=== PATIENT | female | born 1940 | race Caucasian/White ===

== ENCOUNTER 2022-09-23 15:32 | Emergency (ER) | payer MEDICARE, SELFPAY ==
[2022-09-23 16:03] VITALS: BP 137/64; PULSE 70; RESP 18; TEMP 36.6; O2SAT 97; BMI 24.1
== END 2022-09-23 16:43 | disposition left against medical advice (07) ==
DX: Z53.21 Procedure and treatment not carried out due to patient leaving prior to being seen by health care provider (principal)
CPT/HCPCS: 99281

== ENCOUNTER 2022-12-19 08:08 | Emergency (ER) | payer MEDICARE, SELFPAY ==
[2022-12-19 08:22] VITALS: BP 140/60; PULSE 65; RESP 16; TEMP 36.4; O2SAT 97; BMI 23.9
[2022-12-19 08:45] VITALS: BP 140/80; RESP 16; TEMP 36.4; O2SAT 97
--- NOTE | 2022-12-19 08:49 | ED_ITS ---
HPI - General Adult General Time Seen by Provider: 08:49 Date Seen: 12/19/22 Chief complaint: Extremity Pain/Injury, Lower Stated complaint: Blood clot/left leg Time Seen by Provider: 12/19/22 08:32 Source: patient and RN notes reviewed Mode of arrival: ambulatory Limitations: no limitations History of Present Illness HPI narrative: Lavonne is an 82-year-old female coming in with concern of possible blood clot in her left lower leg. She awoke this morning due to pain in the lower medial distal calf. She wears compression stockings and thus has not noted any swe lling. She has had no fevers or chills, no shortness of breath, no chest pain. There has been no trauma. The pain in this leg awoke her this morning. She does not have a history of blood clots but when she called the clinic and talked to the triage nurse, they referred her here with a concern of a possible blood clot. 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 She did end up with a skin graft below the knee on the upper part of the leg. Her pain is medially and distally over the tibial area. No back pain, pain not coming down leg at all. Related Data Home Medications Medication Instructions Recorded Confirmed alendronate 70 mg tablet mg PO 09/23/22 10/02/22 amlodipine 5 mg tablet mg 09/23/22 10/02/22 beclomethasone dipropionate 80 inhalation 09/23/22 10/02/22 mcg/actuation HFA breath activated aerosol (Qvar RediHaler) lisinopril 20 tab 09/23/22 10/02/22 mg-hydrochlorothiazide 25 mg tablet sertraline 50 mg tablet mg 09/23/22 10/02/22 verapamil 180 mg tablet,extended mg PO 09/23/22 10/02/22 release sertraline 25 mg tablet mg 12/19/22 Allergies Allergy/AdvReac Type Severity Reaction Status Date / Time cephalexin Allergy Intermediate Rash Verified 10/02/22 14:37 piperacillin [From Zosyn] Allergy Intermediate Rash Verified 10/02/22 14:37 tazobactam [From Zosyn] Allergy Intermediate Rash Verified 10/02/22 14:37 Review of Systems Status of ROS: Reports: 10 or more systems reviewed and unremarkable except as noted in History and below [facility] Medical History (Updated 12/19/22 @ 10:55 by Emy Oneal MD) Herpes zoster Social History Smoking Status: Never smoker Non-prescribed substance use: denies use Exam Const: Vital Signs, click to edit/add: Vital Signs - 24 hr 12/19/22 08:22 12/19/22 08:45 Temperature 97.6 F 97.6 F Pulse Rate [Right Pulse Oximeter] 65 Respiratory Rate 16 16 Blood Pressure [Ri ght Upper Arm] 140/60 H 140/80 H Pulse Oximetry 97 97 Oxygen Delivery Me thod Room Air Room Air Documenting provider has reviewed patient's vital signs: yes Common normals: no apparent distress, average body habitus, oriented x3, no limitations, healthy appearing and alert General appearance: cooperative, comfortable, well kempt and well developed Other: Has a cane next to her bed which she presumably ambulates with. HENMT: Common normals: normocephalic, head/scalp atraumatic and hearing grossly normal bilaterally Head and scalp: normocephalic and atraumatic Eye: Common normals: PERRL, EOMs intact bilaterally, conjunctivae normal and no scleral icterus Conjunctiva: conjunctiva(e) normal Pupil: PERRL Neck & C-Spine: Common normals: full ROM, no lymphadenopathy, supple, no meningeal signs, no JVD and thyroid normal Thyroid: thyroid normal Resp: Common normals: normal respiratory effort, no retractions, no use of accessory muscles and clear to auscultation bilaterally Auscultation: clear to auscultation bilaterally Cardio: Common normals: no JVD, regular rate, regular rhythm, S1 normal heart sound, S2 normal heart sound, no gallops, no clicks, no murmurs, no rub and peripheral pulses 2+ throughout Rate: regular rate Rhythm: regular rhythm Heart sounds: S1 normal and S2 normal Peripheral pulses: pulses 2+ throughout GI: Common normals: Normal to inspection, nondistended, normoactive bowel sounds present, soft to palpation, non-tender, no hepatosplenomegaly and no masses Palpation: soft and no hepatosplenomegaly Extremity: Other: She has some chronic hemosiderin staining over this medial tibia area distally of the lower extremity. It is tender when I palpate over the distal tibia above the ankle area. There are no new skin changes such as erythema, no open wounds. She has no peripheral edema. Pulses are good, distal sensation is normal. There is no ankle swelling. Neuro: Common normals: oriented x3, moves all extremities, no focal motor deficits and no sensory deficits noted Sensorium/orientation: alert Meningeal signs: no meningeal signs Psych: Appearance: well kempt Course Course Hospital Course: We will have her on pulse oximetry to ensure no hypoxia, will obtain ultrasound to ensure no DVT, will be getting appropriate blood work. Given she has palpable pain over the tibia, will do plain x-rays of her left lower extremity. Infectious etiology, DVT are all possibilities. Certainly things that we may not be able to differentiate in the ED are such as even a stress fracture are all possible etiologies. We will attempt to rule out emergent potentially life- threatening issues but patient does understand if we find no etiology, may request that she follow up in a reasonable time frame for recheck via her clinic. Reevaluation(s) Reevaluation #1: Reviewed normal US, xray and labs. No evidence of infection or dvt at this time. Time: 10:50 Vital Signs Vital signs: Initial Vital Signs Temperature 97.6 F 12/19/22 08:22 Temperature Source Temporal Artery Scan 12/19/22 08:22 Pulse Rate 65 12/19/22 08:22 Respiratory Rate 16 12/19/22 08:22 Blood Pressure 140/60 H 12/19/22 08:22 Blood Pressure Mean 86 12/19/22 08:22 Blood Pressure Position Supine 12/19/22 08:22 Pulse Oximetry 97 12/19/22 08:22 Oxygen Delivery Method 12/19/22 08:22 Vital Signs Temperature 97.6 F 12/19/22 08:22 Pulse Rate 65 12/19/22 08:22 Respiratory Rate 16 12/19/22 08:22 Blood Pressure 140/60 H 12/19/22 08:22 Pulse Oximetry 97 12/19/22 08:22 Oxygen Delivery Method 12/19/22 08:22 Temperature 97.6 F 12/19/22 08:45 Pulse Rate 65 12/19/22 08:22 Respiratory Rate 16 12/19/22 08:45 Blood Pressure 140/80 H 12/19/22 08:45 Pulse Oximetry 97 12/19/22 08:45 Oxygen Delivery Method 12/19/22 08:45 Medical Decision Making Lab Data Lab results reviewed: Yes I reviewed the patient's lab results Labs: Lab Results 12/19/22 12/19/22 12/19/22 Range/Units 09:25 09:25 09:25 WBC 5.93 (4.50-11.00) K/uL RBC 4.34 (4.00-5.20) m/uL Hgb 12.9 (12.0-16.0) gm/dL Hct 38.7 (33.0-51.0) % MCV 89 (80-100) fL MCH 30 (26-34) pg MCHC 33 (32-36) gm/dL RDW Coeff of Rodo 12.6 (11.5-15.5) % Plt Count 197 (140-440) K/uL Neut % (Auto) 66.3 (42.0-72.0) % Lymph % (Auto) 20.4 (20-44) % Hamlin % (Auto) 9.6 (0.0-11.0) % Eos % (Auto) 3.4 (0.0-7.0) % Baso % (Auto) 0.3 (0.0-3.0) % Neut # (Auto) 3.93 (1.7-7.0) K/uL Lymph # (Auto) 1.21 (0.90-2.90) K/uL Hamlin # (Auto) 0.60 (0.00-0.90) K/UL Eos # (Auto) 0.20 (0.00-0.50) K/uL Baso # (Auto) 0.02 (0.00-0.30) K/uL Diff Slide Review Acceptable Review (Acceptable) ESR 2 (2-20) mm/hr D-Dimer Quant (PE/DVT) 0.47 (0.00-0.50) ug/ml Sodium (135-149) mmol/L Potassium (3.6-5.1) mmol/L Chloride (96-114) mmol/L Carbon Dioxide (20-32) mmol/L BUN (7-30) mg/dL Creatinine (0.5-1.5) mg/dL Estimated Creat Clear Estimated GFR ml/min Glucose (60-115) mg/dL Calcium (8.4-10.6) mg/dL C-Reactive Protein (0.5-1.0) mg/dL 12/19/22 Range/Units 09:25 WBC (4.50-11.00) K/uL RBC (4.00-5.20) m/uL Hgb (12.0-16.0) gm/dL Hct (33.0-51.0) % MCV (80-100) fL MCH (26-34) pg MCHC (32-36) gm/dL RDW Coeff of Rodo (11.5-15.5) % Plt Count (140-440) K/uL Neut % (Auto) (42.0-72.0) % Lymph % (Auto) (20-44) % Hamlin % (Auto) (0.0-11.0) % Eos % (Auto) (0.0-7.0) % Baso % (Auto) (0.0-3.0) % Neut # (Auto) (1.7-7.0) K/uL Lymph # (Auto) (0.90-2.90) K/uL Hamlin # (Auto) (0.00-0.90) K/UL Eos # (Auto) (0.00-0.50) K/uL Baso # (Auto) (0.00-0.30) K/uL Diff Slide Review (Acceptable) ESR (2-20) mm/hr D-Dimer Quant (PE/DVT) (0.00-0.50) ug/ml Sodium 137 (135-149) mmol/L Potassium 4.0 (3.6-5.1) mmol/L Chloride 105 (96-114) mmol/L Carbon Dioxide 29 (20-32) mmol/L BUN 28 (7-30) mg/dL Creatinine 0.7 (0.5-1.5) mg/dL Estimated Creat Clear 37.12 Estimated GFR 87 ml/min Glucose 99 (60-115) mg/dL Calcium 9.3 (8.4-10.6) mg/dL C-Reactive Protein < 0.5 L (0.5-1.0) mg/dL Imaging Data X-ray left tib fib: Attestation: I have reviewed the pertinent imaging results. My impression: I see no acute pathology around the distal tibia where she is complaining of pain. Radiologist's impression: Patient: LAVONNE WORTHINGTON Facility:?[facility] Patient ID:?[id number] Site Patient ID:?[id number]. Site :?[id number] Study:?XRay Extremity Left TIB/FIB 2V-12/19/2022 9:12:36 AM Ordering Physician:?UNKNOWN UNKNOWN Final Report: INDICATION: Distal tibial pain. No known injury. TECHNIQUE: Two views of the left tibia and fibula. COMPARISON: None. FINDINGS: Left knee arthroplasty with patellar resurfacing. Multiple surgical clips are projected anterior and lateral to the proximal fibula. No acute fracture or dislocation. Small plantar calcaneal spur. IMPRESSION: Postsurgical changes as described. The examination is otherwise negative. Dictated by Cade Ballard MD @ 12/19/2022 9:27:56 AM (Electronic Signature) Venous US: Attestation: I have reviewed the pertinent imaging results. Radiologist's impression: Patient: LAVONNE WORTHINGTON Facility:?[facility] Patient ID:?[id number] Site Patient ID:?[id number]. Site :?[id number] Study:?US Extremity Left DVT-12/19/2022 10:28:23 AM Ordering Physician:?UNKNOWN UNKNOWN Final Report: INDICATION: left calf pain/swelling TECHNIQUE: Ultrasound venous duplex left lower extremity. COMPARISON: None. FINDINGS: The left common femoral, superficial femoral, deep femoral, popliteal, posterior tibial, and greater saphenous veins are fully compressible normal waveforms. The contralateral right common femoral vein is also compressible with normal waveform. No masses evident. IMPRESSION: Normal ultrasound of the left lower extremity veins. Dictated by: Benja Dow MD @ 12/19/2022 10:43:26 (Electronic Signature) Critical Care Time Critical Care Time Critical Care Time: No Discharge Plan Discharge Clinical Impression: Acute pain of left lower extremity Condition: Stable Instructions: Leg Pain (ED) Additional Instructions: Take Tylenol per bottle directions as needed for pain. Need to schedule a follow-up in clinic within the next week for re-evaluation. Do recommend continuing wearing her compression stockings. Keep close eye on this leg, if you do start noticing redness, develops fever, need to be re-evaluated for possible development of infection. There is no evidence of infection or blood clot at this time. Activity Level: Activity as Tolerated Prescriptions: No Action alendronate 70 mg tablet PO Label Comments: Take 1 tablet (70 mg) by mouth every 7 days verapamil 180 mg tablet extended release PO Label Comments: TAKE TWO TABLETS BY MOUTH DAILY amlodipine 5 mg tablet Label Comments: TAKE ONE TABLET BY MOUTH DAILY lisinopril-hydrochlorothiazide 20-25 mg tablet Label Comments: TAKE ONE TABLET BY MOUTH DAILY sertraline 50 mg tablet Label Comments: TAKE 1 TABLET BY MOUTH DAILY. DUE FOR APPOINTMENT. Qvar RediHaler 80 mcg/actuation HFA aerosol breath activated INHALATION Label Comments: Inhale 1 puff into the lungs 2 times daily sertraline 25 mg tablet Label Comments: Take 1 tablet (25 mg) by mouth daily Follow Up/Referrals: Provider,Not a Local [Primary Care Provider] - Stand Alone Forms: [employer] Info Instructions
--- NOTE | 2022-12-19 08:54 | XR_ITS ---
Patient: MARK WORTHINGTON Facility:?[facility] Patient ID:?[id number] Site Patient ID:?[id number]. Site :?[id number] Study:?XRay-Extremity Left TIB/FIB 2V-12/19/2022 9:12:36 AM Ordering Physician:?UNKNOWN UNKNOWN Final Report: INDICATION: Distal tibial pain. No known injury. TECHNIQUE: Two views of the left tibia and fibula. COMPARISON: None. FINDINGS: Left knee arthroplasty with patellar resurfacing. Multiple surgical clips are projected anterior and lateral to the proximal fibula. No acute fracture or dislocation. Small plantar calcaneal spur. IMPRESSION: Postsurgical changes as described. The examination is otherwise negative. Dictated by Cade Ballard MD @ 12/19/2022 9:27:56 AM Signed by:?Cade Ballard MD @12/19/2022 9:27:56 AM (Electronic Signature)
--- NOTE | 2022-12-19 08:54 | US_ITS ---
Patient: MARK WORTHINGTON Facility:?[facility] Patient ID:?[id number] Site Patient ID:?[id number]. Site :?[id number] Study:?US-Extremity Left DVT-12/19/2022 10:28:23 AM Ordering Physician:?UNKNOWN UNKNOWN Final Report: INDICATION: left calf pain/swelling TECHNIQUE: Ultrasound venous duplex left lower extremity. COMPARISON: None. FINDINGS: The left common femoral, superficial femoral, deep femoral, popliteal, posterior tibial, and greater saphenous veins are fully compressible normal waveforms. The contralateral right common femoral vein is also compressible with normal waveform. No masses evident. IMPRESSION: Normal ultrasound of the left lower extremity veins. Dictated by: Benja Dow MD @ 12/19/2022 10:43:26 Signed by:Elizabeth Dow MD @12/19/2022 10:43:26 AM (Electronic Signature)
[2022-12-19 09:32] LABS: Basophils Absolute Auto 0.02 K/uL (0.00-0.30); Basophils Percent Auto 0.3 % (0.0-3.0); Eosinophils Percent Auto 3.4 % (0.0-7.0); Hematocrit 38.7 % (33.0-51.0); Hemoglobin* 12.9 gm/dL (12.0-16.0); Lymphocytes Absolute Auto 1.21 K/uL (0.90-2.90); Lymphocytes Percent Auto 20.4 % (20-44); Mean Corpuscular HGB Conc 33 gm/dL (32-36); Mean Corpuscular Hemoglobin 30 pg (26-34); Mean Corpuscular Volume 89 fL (80-100); Monocytes Percent Auto 9.6 % (0.0-11.0); Neutrophils Absolute Auto 3.93 K/uL (1.7-7.0); Neutrophils Percent Auto 66.3 % (42.0-72.0); RDW Coefficient of Variation % 12.6 % (11.5-15.5); Red Blood Count 4.34 m/uL (4.00-5.20); White Blood Count* 5.93 K/uL (4.50-11.00)
[2022-12-19 09:39] LABS: Slide Review Reflex Yes
[2022-12-19 09:44] LABS: Chloride* 105 mmol/L (96-114); Sodium* 137 mmol/L (135-149)
[2022-12-19 09:46] LABS: Creatinine* 0.7 mg/dL (0.5-1.5); Est. Creatinine Clearance* 37.12; Estimated Glomerular Filt Rate 87 ml/min
[2022-12-19 09:47] LABS: Blood Urea Nitrogen* 28 mg/dL (7-30); Carbon Dioxide* 29 mmol/L (20-32); Glucose* 99 mg/dL (60-115)
[2022-12-19 09:48] LABS: Calcium* 9.3 mg/dL (8.4-10.6)
[2022-12-19 09:49] LABS: Platelet Count* 197 K/uL (140-440)
[2022-12-19 09:50] LABS: C Reactive Protein* < 0.5 mg/dL (0.5-1.0); D Dimer Quantitative* 0.47 ug/ml (0.00-0.50); Slide Review Acceptable Review (Acceptable)
[2022-12-19 10:23] LABS: Erythrocyte SedimentationRate* 2 mm/hr (2-20)
== END 2022-12-19 11:03 | disposition home or self-care (01) ==
PROVIDERS: Emergency Provider Family Medicine
DX: M79.662 Pain in left lower leg (principal)
CPT/HCPCS: 36415; 73590; 80048; 85025; 85379; 85651; 86140; 93971; 94761; 99284

== ENCOUNTER 2024-03-17 15:35 | Outpatient (CLI) | payer MEDICARE, SELFPAY ==
--- OUTSIDE RECORDS SUMMARY | 2024-03-17 15:40 | XMS_ITS | Clinical Summary ---
Author Name Unknown Organization [place] Address [address] [facility] [address] Care Team Providers Care Tire And Lube Technician Name Role Phone Samantha Hodge MD Primary Care Provider [phone] Samantha Hodge MD Unavailable [phone] Allergies Active Allergy Reactions Criticality Noted Date Comments Cephalexin Hcl Rash Low 12/13/2012 No Clinical Screening - See Comments 09/10/1996 PN: LW CM1: CONTRAST- NKA Reaction : PN: LW Other1: -NKA Piperacillin Rash Low 03/30/2021 Piperacillin Sod-Tazobactam So Rash Low 10/15/2018 Tazobactam Rash Low 03/30/2021 Medications Medication Sig Dispensed Refills Start Date End Date Status Magnesium 500 MG CAPS Take 750 mg by mouth every morning Active order for DMEIndications:HX: breast cancer Equipment being ordered: 3 mastectomy bras, left mastectomy 3 Device 09/03/2019 Active order for DMEIndications:HX: breast cancer Equipment being ordered: left breast prosthesis 1 Device 09/03/2019 Active vitamin B-12 (CYANOCOBALAMIN) 500 MCG tablet Take 500 mcg by mouth daily Active pyridOXINE (VITAMIN B6) 100 MG TABS Take 100 mg by mouth daily Active Ascorbic Acid (VITAMIN C) 500 MG CAPS Take 1,000 mg by mouth daily Active Cholecalciferol (VITAMIN D3) 50 MCG (1999 UT) TABS Take 2,000 Units by mouth daily Active BETA CAROTENE PO Take 7,500 Units by mouth daily Active vitamin E 400 units TABS Take 400 Units by mouth daily Active Lysine 1000 MG TABS Take by mouth daily Active Lutein 20 MG CAPS Take 20 mg by mouth daily Active Potassium Gluconate 595 (99 K) MG TABS Take 1 tablet by mouth daily Active Selenium 200 MCG TABS tablet Take 200 mcg by mouth daily Active zinc gluconate 50 MG tablet Take 50 mg by mouth daily Active calcium carbonate (OS-DIANA) 1500 (600 Ca) MG tablet Take 600 mg by mouth daily Active albuterol (PROAIR HFA/PROVENTIL HFA/VENTOLIN HFA) 108 (90 Base) MCG/ACT inhaler Inhale 2 puffs into the lungs every 4 hours as needed for shortness of breath or wheezing Active fish oil-omega-3 fatty acids 1000 MG capsule Take 1 g by mouth daily Active glucosamine sulfate 1000 MG CAPS Take 1,000 mg by mouth daily Active beclomethasone HFA (QVAR REDIHALER) 80 MCG/ACT inhalerIndications: Mild intermittent asthma without complication Inhale 1 puff into the lungs 2 times daily 10.6 g 3 01/16/2022 Active alendronate (FOSAMAX) 70 MG tabletIndications:A ge-related osteoporosis without current pathological fracture Take 1 tablet (70 mg) by mouth every 7 days 13 tablet 3 05/03/2022 Active amLODIPine (NORVASC) 5 MG tabletIndications:E ssential hypertension Take 1 tablet by mouth daily 90 tablet 3 07/10/2022 Active verapamil ER (CALAN-SR) 180 MG CR tabletIndications:E ssential hypertension TAKE TWO TABLETS BY MOUTH DAILY 180 tablet 1 07/24/2022 Active Additional Information Patient taking differently: 360 mg Oral DAILY, Reported on 03/07/2023 sertraline (ZOLOFT) 50 MG tabletIndications:M oderate episode of recurrent major depressive disorder (H) TAKE 1 TABLET BY MOUTH DAILY. DUE FOR APPOINTMENT. 90 tablet 11/23/2022 Active Additional Information Patient taking differently: 75 mg Oral DAILY, Reported on 03/07/2023 lisinopril-hydrochl orothiazide (ZESTORETIC) 20-25 MG tabletIndications:E ssential hypertension TAKE ONE TABLET BY MOUTH DAILY 90 tablet 12/06/2022 Active Additional Information Patient taking differently: 1 tablet Oral DAILY, Reported on 03/07/2023 ibuprofen (ADVIL/MOTRIN) 600 MG tablet Take 1 tablet (600 mg) by mouth every 6 hours as needed for pain 30 tablet 03/09/2023 Active oxyCODONE (ROXICODONE) 5 MG tablet Take 1 tablet (5 mg) by mouth every 4 hours as needed for moderate pain 20 tablet 03/09/2023 Active senna-docusate (SENOKOT-S/PERICOLA CE) 8.6-50 MG tablet Take 1 tablet by mouth 2 times daily 30 tablet 03/09/2023 Active Active Problems Problem Noted Date Diagnosed Date S/P gynecological surgery, follow-up exam 2022 Recurrent major depressive d isorder, in full remission (H24) 10/25/2022 Moderate episode of recurrent major depressive d isorder 01/16/2022 Acute kidney injury (H24) 04/04/2021 Elevated procalcitonin 04/04/2021 Fever 04/04/2021 Fracture of right hip 04/04/2021 Hyponatremia 04/04/2021 Lesion of soft tissue of lower leg and ankle 08/2021 Open wound of lower limb, right, initial encount er 02/26/2020 S/P flap graft 09/05/2018 Status post total knee replacement 08/30/2018 Open knee wound, left, initial encounter 018 Osteoporosis without current pathological fracture, unspecified osteoporosis type 01/17/2018 HX: breast cancer 12/13/2015 CARDIOVASCULAR SCREENING; LDL GOAL LESS THAN 130 10/02/2013 Health Correction 07/10/2013 Overview: Candy Sams RN-BSN, [facility] [phone]. FPA / FMG [facility] Line Service Person Asthma, mild intermittent 03/07/2013 Arthritis of hip 12/23/2012 Essential hypertension 05/02/2003 Overview: Hypertension Hypoxia 05/02/2003 Overview: Asthma NOS Resolved Problems Problem Noted Date Diagnosed Date Resolved Date Ulcer of lower limb, left, w ith unspecified severity 12/14/2016 12/27/2017 Generalized anxiety disorder 04/03/2014 10/24/2018 Overview: Diagnosis updated by automated process. Provider to review and confirm. HTN (hypertension) 12/30/2012 6 Physical deconditioning 12/30/201209/26 Anemia due to blood loss, acute 12/30/2012 03/07/2013 Encounters Date Type Department Care Team Description 02/08/2024 9:56 AM CDT - 02/08/2024 11:59 PM CDT Hospital Encounter [facility] [address] [facility], [address] [place] [address] Cassandra Hernandez MD Visit for screening mammogram Discharge Disposition: Home or Self Care 02/08/2024 Travel 01/18/2024 Telephone [facility] [address] [place] [id number] Samantha Hodge MD test (Cologuard FIT test) from Last 3 Months Immunizations Name Administration Dates Next Due COVID-19 MONOVALENT 12+ (Pfizer) 01/15/2021,11/28 Influenza (H1N1) 12/14/2009 Influenza (High Dose) 3 veronica nt vaccine 09/03/2019,10/04/2018,09/11/2017,09/26,09/08/2015,09/11/2014 Influenza (IIV3) PF 09/11/2014,09/01/2013,2011 Influenza Vaccine 65+ (Fluzone HD) 08/17/2021, Influenza Vaccine >6 months,quad, PF 08/18/2020, 12/14/2009 Pneumo Conj 13-V (2010&after) 04/30/2018 Pneumococcal 23 valent 09/05/2012 TDAP (Adacel,Boostrix) 08/07/2011 Td (Adult), Adsorbed 01/16/2003,07/26/1998 Tdap (Adult) Unspecified Formulation 01/16/2003 Zoster recombinant adjuvante d (SHINGRIX) 10/22/2018,06/04/2018 08/05/2018 Zoster vaccine, live 10/22/2018,06/04/2018,08/07 Family History Medical History Relation Comments No Known Problems Daughter C.A.D. Father Cancer Mother Endometrial CA Breast Cancer No family hx of Ovarian Cancer No family hx of Relation Status Comments Brother Daughter Alive Father Mother Sister Son Social History Tobacco Use Types Packs/Day Years Used Date Smoking Tobacco: Never Smokeless Tobacco: Never Tobacco Cessation:Counseling Given: No Alcohol Use Standard Drinks/Week Comments Yes 0 (1 standard drink = 0.6 oz pur e alcohol) 3 drinks weekly PHQ-2 Answer Date Recorded PHQ-2 Score 0 10/25/2022 Adolescent Education Answer Date Record ed Getting School Help Needed Not on file 09/09 Sex and Gender Information Value Date Recorded Sex Assigned at Not on file Gender Identity Not on file Sexual Orientation Not on file Last Filed Vital Signs Vital Sign Reading Time Taken Comments Blood Pressure 131/62 03/09/2023 7:25 AM CDT Pulse 67 03/09/2023 7:25 AM CDT Temperature 36.7 ??C (98.1 ??F) 03/09/2023 7:25 AM CD T Respiratory Rate 18 03/09/2023 7:25 AM CDT Oxygen Saturation 95% 03/09/2023 7:25 AM CDT Inhaled Oxygen Concentration - - Weight 62.7 kg (138 lb 3.2 oz) 03/08/2023 10:36 AM CDT Height 158.8 cm (5' 2.5) 02/26/2023 9:45 AM CDT Body Mass Index 24.87 02/26/2023 9:45 AM CDT Plan of Treatment Health Maintenance Due Date Last Done Comments DEPRESSION ACTION PLAN 1940 URINE DRUG SCREEN 1940 RSV VACCINE ( & 60+) (1 - 1-dose 60+ series) 2002 ASTHMA ACTION PLAN 03/07/2014 03/07/2013 ASTHMA CONTROL TEST 04/24/2023 10/25/2022, 01/16/2022, 04/20/2021, Additional history exists PHQ-9 04/24/2023 10/25/2022, 07/28, 01/16/2022, Additional history exists ANNUAL REVIEW OF HM ORDERS 10/25/2023 10/25/2022 FALL RISK ASSESSMENT 02/27/2024 02/26/2023, 01/16/2022, 10/25/2021, Additional history exists MEDICARE ANNUAL WELLNESS VISIT 01/30/2025 01/31/2024, 01/26/2023, 01/26/2023, Additional history exists MAMMO SCREENING 02/07/2025 02/08/2024, 01/24, 01/23/2022, Additional history exists ADVANCE CARE PLANNING 03/08/2028 03/08/2023 , 01/16/2022, 04/04/2021, Additional history exists DEXA 01/03/2033 01/03/2018, 06/2018, 11/29/2015, Additional history exists DTAP/TDAP/TD IMMUNIZATION (4 - Td or Tdap) 01/26/2033 01/26/2023, 08/07/2011, 01/16/2003, Additional history exists Pneumococcal Vaccine: 65+ Years Completed 04/30/2018, 09/05/2012 ZOSTER IMMUNIZATION Completed 10/22/2018, 10/22/2018, 06/04/2018, Additional history exists COVID-19 Vaccine Completed 09/04/2023, , 04/25/2022, Additional history exists INFLUENZA VACCINE Completed 09/04/2023, , 09/07/2022, Additional history exists HPV IMMUNIZATION Aged Out No longer e ligible based on patient's age to complete this topic IPV IMMUNIZATION Aged Out No longer e ligible based on patient's age to complete this topic MENINGITIS IMMUNIZATION Aged Out No l onger eligible based on patient's age to complete this topic RSV MONOCLONAL ANTIBODY Aged Out No l onger eligible based on patient's age to complete this topic Medical Devices Implanted Type Area Sanitarian Device Identifier Shelf Expiration Date Model / Serial / Lot Mesh Sling Single Incision Altis [id number] - [id number] Implanted:Qty: 1 on 03/08/2023 by Guille Modi MD at [facility] Mesh N/A: Vagina COLOPLAST 09/22/2025 [id number] / / [id number] Darling Nabsb Saffron Fx Strl Lf Reuse - [id number] Implanted:Qty: 1 on 03/08/2023 by Guille Modi MD at [facility] Metallic Hardware/An chor N/A: Vagina COLOPLAST [id number] 2025 [id number] / / [id number] Darling Dimpleb Brady Strl Lf Disp - [id number] Implanted:Qty: 6 on 03/08/2023 by Guille Modi MD at [facility] Metallic Hardware/An chor N/A: Vagina COLOPLAST 07/05/2025 [id number] / / [id number] Imp Device Anastomotic 2.0mm Order Manager Green [id number] Implanted:Qty: 1 on 09/05/2018 by Ian Irwin MD at [facility] Other Left: Knee [employer] 06/19/2023 [id number] / / [id number] Description:Implanted at [facility] e Flap Site Imp Device Anastomotic 3.0mm Order Manager Gold [id number] Implanted:Qty: 1 on 09/05/2018 by Ian Irwin MD at [facility] Other Left: Knee [employer] 04/11/2023 [id number] / / [id number] Description:Implanted at [facility] e Flap Site 56mm E Cluster Hole Shell Implanted:Qty: 1 on 12/23/2012 by Valdo Ramos MD at [facility] Left: Hip 11/19/2017 [id number] 6E / / [id number] Imp Scr Osteonics 6.5x30mm Acetabular Implanted:Qty: 1 on 12/23/2012 by Valdo Ramos MD at [facility] Left: Hip 09/19/20173 0-1 / / [id number] Imp Scr Osteonics 6.5x25mm Acetabular Implanted:Qty: 1 on 12/23/2012 by Valdo Ramos MD at [facility] Left: Hip 09/19/2017652 5-1 / / [id number] Imp Plug Hip Secur-Fit Apical Implanted:Qty: 1 on 12/23/2012 by Valdo Ramos MD at [facility] Left: Hip 11/19/2017 0-1 / / [id number] Imp Liner Strk Trident X3 Poly 36mm 0deg Sz E [id number] Implanted:Qty: 1 on 12/23/2012 by Valdo Ramos MD at [facility] Left: Hip 10/20/2017 623-00-3 6E / / [id number] Imp Stem Femoral Hip Strk Accolade Tmzf Sz #4.5 Implanted:Qty: 1 on 12/23/2012 by Valdo Ramos MD at [facility] Left: Hip 03/20/2017 6020-453 5 / / [id number] Imp Head Femoral Strk Biolox Delta Ceramic 36mm -5mm Implanted:Qty: 1 on 12/23/2012 by Valdo Ramos MD at [facility] Left: Hip 09/19/2017 6570-0-0 36 / / [id number] Procedures Procedure Name Priority Date/Time Associated Diagnosis Comments MA SCREENING RIGHT W/ AGUILAR Routine 02/08/2024 10:19 AM CDT Visit for screening mammogram DX PERIPHERAL WRIST Routine 01/03/2018 1 0:43 AM SLIVER CUTTER Routine general medical examination at a [facility] facility ASTHMA ACTION PLAN Routine 03/07/2013 1: 47 PM CDT Asthma, mild intermittent from Last 3 Months or Most Recently Relevant to Health Maintenance Results * MA Screen Right w/Aguilar (02/08/2024 10:19 AM CDT) Anatomical Region Laterality Modality Breast Bilateral Mammography Impressions 02/08/2024 1:26 PM CDT IMPRESSION: ACR BI-RADS Category 1: Negative BREAST CANCER SCREENING RECOMMENDATION: Routine yearly mammography beginning at age 40 or as discussed with your provider. The results and recommendations of this examination will be communicated to the patient. Estephania Funk MD Narrative 02/08/2024 1:26 PM CDT RIGHT FULL FIELD DIGITAL SCREENING MAMMOGRAM WITH TOMOSYNTHESIS Performed on: 02/08/24 Compared to: 02/06/2023, 01/23/2022, and 12/01/2019 Technique: ??This study was evaluated with the assistance of Computer-Aided Detection. ??Breast Tomosynthesis was used in interpretation. Findings: The patient is status post left mastectomy. The breast has scattered areas of fibroglandular density. ??There is no radiographic evidence of malignancy. Cassandra Hernandez MD IMG MAMMOGRAPHY KATELYN GARCIA * DX Wrist Heel Radius (01/03/2018 10:43 AM SLIVER CUTTER) Anatomical Region Laterality Modality Dexa Bone Mineral Den sity Narrative 01/04/2018 8:56 AM SLIVER CUTTER BONE DENSITOMETRY [address] [address] 01/03/2018 ?? PATIENT: Lavonne Thapa CHART: [id number] : ??1940 AGE: ??77 year old SEX: ??female REFERRING PROVIDER: Samantha Hodge MD ?? PROCEDURE: ??Bone density scanning was performed using DXA technology of the lumbar spine and hip. ??Scanning was performed on a [employer] scanner. ??Reporting is completed in the form of a T-score. ??The T-score represents the standard deviation from peak bone mass based on a young healthy adult. ?? REFERENCE T-SCORES: ?Normal ?-1.0 and greater ?Osteopenia ? Between -1.0 and -2.5 ?Osteoporosis ? -2.5 and less ? RISK FACTORS: ??Post-menopausal, Height loss of 2.5 inches, follow up severe osteoporosis, multiple vertebral fractures CURRENT TREATMENT: ??Calcium with Vitamin D ?? FINDINGS: ? Lumbar Spine (L1-L3) T-score: 0.7, marked degenerative changes present, most marked at L4, so only L1-3 are evaluated. ? Right Femoral Neck T-score: ??-3.1 ? Forearm (radius 33%) T-score: ??-1.2 The left femur is not acceptable for evaluation due to previous arthroplasty. ?? Lumbar (L1-L3) BMD: 1.270 ?Previous: 1.294 ? Right Total Hip BMD: 0.659 ? Previous: 0.687 ?? Forearm (radius 33%) BMD: 0.617 ?Previous: 0.639 Comparison is made to another DXA performed on the same [employer] ?? machine on 11/29/2015. ?? LATERAL VERTEBRAL ASSESSMENT Procedure: ??Vertebral fracture assessment was performed in the lateral decubitus position using a [employer] ??densitometer. Indications for VFA: T-score of -1.0 or worse, age (female>69), height loss > 1.5 and history of vertebral fracture Confounding factors for VFA: None. ??The LVA scan is interpretable from T6 to L4. VFA Findings: Using the semi-quantitative analysis of [place] there was evidence of spinal deformity as follows: ??moderate (grade 2) crush fracture of T10, and moderate (grade 2) crush fracture of T11 VFA Impression: Lavonne Thapa has 2 vertebral fractures identified on the LVA. ??If alternative etiologies for the presence of vertebral fractures are excluded, the diagnosis is consistent with severe osteoporosis. ??These are unchanged from 2016 IMPRESSION Severe osteoporosis on the basis of multiple vertebral fractures. There has been no significant change in bone density of the lumbar spine. There has been a trend toward significant decrease in bone density of the hip. There has been no significant change in bone density of the forearm. Recommendations include ensuring adequate Calcium and Vitamin D. The current NOF Guidelines recommend treatment for patients with prior hip or vertebral fracture, T-score -2.5 or below, or 10 year risk of any major osteoporotic fracture >20% or 10 year risk of hip fracture >3%, as calculated using the FRAX calculator (www.shef.ac.uk/FRAX or you can google FRAX). ?? Based on these guidelines, treatment (in addition to calcium and vitamin D) is recommended for this patient, after ruling out other causes of osteoporosis. This is meant as an aid to clinical decision making; one must still use clinical judgement. Follow up can be considered in 2 years. Patricia Orellana M.D. Electronically signed ?? Samantha Hodge MD IMG DEXA ORDERABLES from Last 3 Months or Most Recently Relevant to Health Maintenance Advance Directives For more information, please contact: [phone] Documents on File Type Date Recorded Patient Family Service Caseworker Expl anation Advance Directives and Living Will 03/08/2023 Health Care Directiv e 01/06/2020 Advance Directives and Living Will 04/04/2021 POL 09-12-18 * Full Code (Latest Code Status on File) Date Activated Date Inactivated Comments 03/08/2023 5:07 PM 03/09/2023 2:36 PM All basic an d advanced life-sustaining interventions are performed as appropriate Question Answer Comments Code status determined by: Discussion with kimberly khanna/ legal decision maker * Full Code Date Activated Date Inactivated Comments 08/30/2018 6:04 PM 09/06/2018 1:24 AM Question Answer Comments Code status determined by: Discussion with patie nt/legal decision maker * Full Code Date Activated Date Inactivated Comments 08/29/2018 9:00 PM 08/30/2018 6:04 PM Question Answer Comments Code status determined by: Unable to dis cuss and no AD/POLST on file; continue PREVIOUSLY ORDERED code status * Full Code Date Activated Date Inactivated Comments 12/23/2012 6:12 PM 12/26/2012 4:40 PM Healthcare Agents on File Name Relationship Healthcare Agent Relationshi p Communication Courtney Nicholsonwillam Daughter Health Care Agent Annette Nugent Daughter First Alternate Health Care Agent Care Teams Tire And Lube Technician Relationship Specialty Start Date End Date Samantha Hodge MD [address] [address] PCP - General Internal Medicine 02/08/24 Samantha Hodge MD [address] [place] [address] Assigned PCP 02/16/24
--- OUTSIDE RECORDS SUMMARY | 2024-03-17 15:41 | XMS_ITS | Encounter Summary ---
Author Name Unknown Organization [place] Address [address] [place] [address] Care Team Providers Care Locomotive Crane Operator Helper Name Role Phone Whitehead, Annette Damico APRN JITTERBUG OPERATOR Unavailable [phone] Samantha Hodge MD Primary Care Provider [phone] Reason for Visit * Diagnostic Imaging Mammo (Routine) - Pending Review Specialty Diagnoses / Procedures Referred By Brenda solis Referred To Contact Radiology. Diagnoses Visit for screening mammogram Procedures MA Screen Right w/Jose A MA Screen Bilateral w/Jose A Cassandra Hernandez MD [address] [place] [address] Referral ID Status Reason Start Date Expiration Date V isits Requested Visits Authorized [id number] Pending Review 01/18/2024 01/17/2025 1 1 Encounter Details Date Type Department Care Team (Late st Contact Info) Description 02/08/2024 9:56 AM CDT - 02/08/2024 11:59 PM CDT Hospital Encounter [facility] [address] [place] [id number] Cassandra Hernandez MD [address] [place] [address] Visit for screening mammogram Discharge Disposition: Home or Self Care Social History Tobacco Use Types Packs/Day Years Used Date Smoking Tobacco: Never Smokeless Tobacco: Never Alcohol Use Standard Drinks/Week Comments Yes 0 [...] on file Sexual Orientation Not on file documented as of this encounter Medications at Time of Discharge Medication Sig Dispensed Refills Start Date End Date albuterol (PROAIR HFA/PROVENTIL HFA/VENTOLIN HFA) 108 (90 Base) MCG/ACT inhaler Inhale 2 puffs into the lungs every 4 hours as needed for shortness of breath or wheezing alendronate (FOSAMAX) 70 MG tabletIndications:Age-r elated osteoporosis without current pathological fracture Take 1 tablet (70 mg) by mouth every 7 days 13 tablet 3 05/03/2022 amLODIPine (NORVASC) 5 MG tabletIndications:Essen tial hypertension Take 1 tablet by mouth daily 90 tablet 3 07/10/2022 Ascorbic Acid (VITAMIN C) 500 MG CAPS Take 1,000 mg by mouth daily beclomethasone HFA (QVAR REDIHALER) 80 MCG/ACT inhalerIndications:Mild intermittent asthma without complication Inhale 1 puff into the lungs 2 times daily 10.6 g 3 01/16/2022 BETA CAROTENE PO Take 7,500 Units by mouth daily calcium carbonate (OS-DIANA) 1500 (600 Ca) MG tablet Take 600 mg by mouth daily Cholecalciferol (VITAMIN D3) 50 MCG (2000 UT) TABS Take 2,000 Units by mouth daily fish oil-omega-3 fatty acids 1000 MG capsule Take 1 g by mouth daily glucosamine sulfate 1000 MG CAPS Take 1,000 mg by mouth daily ibuprofen (ADVIL/MOTRIN) 600 MG tablet Take 1 tablet (600 mg) by mouth every 6 hours as needed for pain 30 tablet 03/09/2023 lisinopril-hydrochlorot hiazide (ZESTORETIC) 20-25 MG tabletIndications:Essen tial hypertension TAKE ONE TABLET BY MOUTH DAILY 90 tablet 12/06/2022 Lutein 20 MG CAPS Take 20 mg by mouth daily Lysine 1000 MG TABS Take by mouth daily Magnesium 500 MG CAPS Take 750 mg by mouth every morning order for DMEIndications:HX: breast cancer Equipment being ordered: 3 mastectomy bras, left mastectomy 3 Device 09/03/2019 order for DMEIndications:HX: breast cancer Equipment being ordered: left breast prosthesis 1 Device 09/03/2019 oxyCODONE (ROXICODONE) 5 MG tablet Take 1 tablet (5 mg) by mouth every 4 hours as needed for moderate pain 20 tablet 03/09/2023 Potassium Gluconate 595 (99 K) MG TABS Take 1 tablet by mouth daily pyridOXINE (VITAMIN B6) 100 MG TABS Take 100 mg by mouth daily Selenium 200 MCG TABS tablet Take 200 mcg by mouth daily senna-docusate (SENOKOT-S/PERICOLACE) 8.6-50 MG tablet Take 1 tablet by mouth 2 times daily 30 tablet 03/09/2023 sertraline (ZOLOFT) 50 MG tabletIndications:Moder ate episode of recurrent major depressive disorder (H) TAKE 1 TABLET BY MOUTH DAILY. DUE FOR APPOINTMENT. 90 tablet 11/23/2022 verapamil ER (CALAN-SR) 180 MG CR tabletIndications:Essen tial hypertension TAKE TWO TABLETS BY MOUTH DAILY 180 tablet 1 07/24/2022 vitamin B-12 (CYANOCOBALAMIN) 500 MCG tablet Take 500 mcg by mouth daily vitamin E 400 units TABS Take 400 Units by mouth daily zinc gluconate 50 MG tablet Take 50 mg by mouth daily documented as of this encounter Plan of Treatment Not on file documented as of this encounter Procedures Procedure Name Priority Date/Time Associated Diagnosis Comments MA SCREENING RIGHT W/ JOSE A Routine 02/08/2024 10:19 AM CDT Visit for screening mammogram documented in this encounter Results * MA Screen Right w/Jose A (02/08/2024 10:19 AM CDT) Anatomical Region Laterality [...] Cassandra Hernandez MD IMG MAMMOGRAPHY KATELYN GARCIA documented in this encounter Visit Diagnoses Diagnosis Visit for screening mammogram Other screening mammogram documented in this encounter Additional Health Concerns Assessment Noted Time PHQ-9 Depression Total Score: 0 10/25/20 22 11:31 AM DOOR ASSEMBLER documented as of this encounter Care Teams Locomotive Crane Operator Helper Relationship Specialty Start Date End Date Samantha Hodge MD [address] [place], [place] [address] PCP - General Internal Medicine 02/08/24 Annette Whitehead, TINT LAYER JITTERBUG OPERATOR [address] [place], [place] [id number] Assigned PCP 01/18/24 02/15/24 documented as of this encounter
--- OUTSIDE RECORDS SUMMARY | 2024-03-17 15:41 | XMS_ITS | Encounter Summary ---
Author Name Unknown Organization [place] Address [address] [facility] [place] [address] Care Team Providers Care Set Illustrator Name Role Phone Samantha Hodge MD Primary Care Provider [phone] Samantha Hodge MD Unavailable [phone] Jaun Calabrese MD Unavailable [phone] Annette Whitehead APRN MANAGEMENT TRAINEE MARKETING Unavailable [phone] Samantha Hodge MD Primary Care Provider [phone] Samantha Hodge MD Unavailable [phone] Reason for Visit * Reason Comments Medication Refill Encounter Details Date Type Department Care Team (Late st Contact Info) Description 03/25/2022 Refill [facility] [address] [place] [address] Samantha Hodge MD [address] [place] [address] Medication Refill Social History Tobacco Use Types Packs/Day Years Used Date Smoking Tobacco: Never Smokeless Tobacco: Never Alcohol Use Standard Drinks/Week Comments Yes 0 (1 standard drink = 0.6 oz pur e alcohol) 3 drinks weekly PHQ-2 Answer Date Recorded PHQ-2 Score 2 01/16/2022 Sex and Gender Information Value Date Recorded Sex Assigned at Not on file Gender Identity Not on file Sexual Orientation Not on file documented as of this encounter Miscellaneous Notes * Telephone Encounter - Talita Zamorano RN - 03/28/2022 12:47 PM CDT Routing refill request to provider for review/approval because: Drug not active on patient's medication list Prescription approved per [facility] Refill Protocol. amlodipine Due for appointment with Naveen around 07/16/22 Routed to covering provider for review. documented in this encounter Plan of Treatment Not on file documented as of this encounter Visit Diagnoses Diagnosis Essential hypertension Unspecified essential hypertension documented in this encounter Additional Health Concerns Assessment Noted Time PHQ-9 Depression Total Score: 3 01/16/20 22 9:19 AM REPRESENTATIVE PERSONAL SERVICE documented as of this encounter Care Teams Set Illustrator Relationship Specialty Start Date End Date Samantha Hodge MD [address] [place] [address] PCP - General Internal Medicine 08/31/16 01/09/24 Samantha Hodge MD [address] [employer] [facility] [address] [place] [address] PCP - General Internal Medicine 02/08/24 Samantha Hodge MD [address] [facility] [address] [place] [address] Assigned PCP 09/07/19 01/17/24 Jaun Calabrese MD [address] [place] [address] Assigned OBGYN Provider 04/09/2210/05 Annette Whitehead, WOOL CLEANER MANAGEMENT TRAINEE MARKETING [address] [place] [address] Assigned PCP 01/18/24 02/15/24 Samantha Hodge MD [address] [facility] [address] [place] [address] Assigned PCP 02/16/24 documented as of this encounter
--- OUTSIDE RECORDS SUMMARY | 2024-03-17 15:41 | XMS_ITS | Encounter Summary ---
Author Name Unknown Organization [place] Address [address] [place] [address] Care Team Providers Care Psychiatric Lpn Name Role Phone Annette Whitehead Margaux MURO WELFARE INTERVIEWER Unavailable Samantha Hodge MD Primary Care Provider [phone] Samantha Hodge MD Unavailable [phone] Reason for Visit * Reason Onset Date Comments test 01/18/[address] Encounter Details Date Type Department Care Team (Late st Contact Info) Description 01/18/[address] [place] [address] Samantha Hodge MD [address] [facility] [address] [place] [address] test (Cologuard FIT test) Social History Tobacco Use Types Packs/Day Years [...] encounter Miscellaneous Notes * Telephone Encounter - Sohail Flores MD - 02/05/2024 3:59 PM CDT Placed order for FIT test. Should this be mailed to her? * Telephone Encounter - Talita Zamorano RN - 01/21/2024 11:50 AM CST Please see message below. Test pended Routed to covering provider-Sandra RANS SERVICE REPRESENTATIVE * Telephone Encounter - Talita Jeffries - 01/18/2024 4:03 PM CST Patient calls asking for the at home Cologuard FIT test kit. Patient call back number [phone] RANS SERVICE REPRESENTATIVE documented in this encounter Plan of Treatment Scheduled Orders Name Type Priority Associated Diagnoses Orde r Schedule Fecal colorectal cancer screen (FIT) Lab Routine Screen for colon cancer Expected: 02/06/2024 (Approximate), Expires: 01/21/2025 documented as of this encounter Visit Diagnoses Diagnosis Screen for colon cancer- Primary Special screening for malignant neoplasms, colon documented in this encounter Additional Health Concerns Assessment Noted Time PHQ-9 Depression Total Score: 0 10/25/20 22 11:31 AM VETERANS SERVICE REPRESENTATIVE documented as of this encounter Care Teams Psychiatric Lpn Relationship Specialty Start Date End Date Samantha Hodge MD [address] [facility] [address] [place] [address] PCP - General Internal Medicine 02/08/24 Annette Whitehead APRN CNP [address] [place] [address] Assigned PCP 01/18/24 02/15/24 Samantha Hodge MD [address] [facility] [address] [place] [address] Assigned PCP 02/16/24 documented as of this encounter
--- OUTSIDE RECORDS SUMMARY | 2024-03-17 15:41 | XMS_ITS | Encounter Summary ---
Author Name Unknown Organization [place] Address [address] [facility] [place] [address] Care Team Providers Care Snow Technician Name Role Phone Samantha Hodge MD Primary Care Provider [phone] Samantha Hodge MD Unavailable [phone] Jaun Calabrese MD Unavailable [phone] Annette Whitehead APRN CASH CROP FARMER Unavailable [phone] Samantha Hodge MD Primary Care Provider [phone] Samantha Hodge MD Unavailable [phone] Reason for Visit * Reason Comments Medication Refill Encounter Details Date Type Department Care Team (Late st Contact Info) Description 12/04/[address] [facility] [address] [place] [address] Samantha Hodge MD [address] [place] [address] Medication Refill Social History Tobacco Use Types Packs/Day Years Used Date Smoking Tobacco: Never Smokeless Tobacco: Never Alcohol Use Standard Drinks/Week Comments Yes 0 (1 standard drink = 0.6 oz pur e alcohol) 3 drinks weekly PHQ-2 Answer Date Recorded PHQ-2 Score 0 10/25/2022 Sex and Gender Information Value Date Recorded Sex Assigned at Not on file Gender Identity Not on file Sexual Orientation Not on file COVID-19 Exposure Response Date Recorded In the last 10 days, have yo u been in contact with someone who was confirmed or suspected to have Coronavirus/COVID-19? No / Unsure 11/16/2022 8:53 AM HIDE DROPPER documented as of this encounter Miscellaneous Notes * Telephone Encounter - Talita Zamorano, RN - 12/06/2022 1:03 PM CST Medication is being filled for 1 time refill only due to: has upcoming appt Next 5 appointments (look out 90 days) Jan 17, 2023 8:00 AM (Arrive by 7:40 AM) Annual Wellness Visit with Samantha Hodge MD [facility] ([facility] ) [address] [facility] [address] DROPPER documented in this encounter Plan of Treatment Not on file documented as of this encounter Visit Diagnoses Diagnosis Essential hypertension Unspecified essential hypertension documented in this encounter Additional Health Concerns Assessment Noted Time PHQ-9 Depression Total Score: 0 10/25/20 22 11:31 AM HIDE DROPPER documented as of this encounter Care Teams Snow Technician Relationship Specialty Start Date End Date Samantha Hodge MD [address] [facility] [address] [place] [address] PCP - General Internal Medicine 08/31/16 01/09/24 Samantha Hodge MD [address] [facility] [address] [place] [address] PCP - General Internal Medicine 02/08/24 Samantha Hodge MD [address] [place] [address] Assigned PCP 09/07/19 01/17/24 Jaun Calabrese MD [address] [facility] [address] [place] [address] Assigned OBGYN Provider 04/09/2210/05 Annette Whitehead APRN [facility] [address] [place] [address] Assigned PCP 01/18/24 02/15/24 Samantha Hodge MD [address] [facility] [address] [place] [address] Assigned PCP 02/16/24 documented as of this encounter
--- OUTSIDE RECORDS SUMMARY | 2024-03-17 15:41 | XMS_ITS | Encounter Summary ---
Author Name Unknown Organization [place] Address [address] [facility] [place] [address] Care Team Providers Care Cashier Manager Name Role Phone Samantha Hodge MD Primary Care Provider [phone] Samantha Hodge MD Unavailable [phone] Migue Becerra MD Unavailable + [phone] Jaun Calabrese MD Unavailable [phone] Annette Whitehead APRN ARTIFICIAL FLOWER MAKER Unavailable [phone] Samantha Hodge MD Primary Care Provider [phone] Samantha Hodge MD Unavailable [phone] Reason for Visit * Reason Comments Medication Refill Encounter Details Date Type Department Care Team (Late st Contact Info) Description 08/15/2021 Refill [facility] [address] [place] [address] Samantha Hodge MD [address] [facility] [address] [place] [address] Medication Refill Social History Tobacco Use Types Packs/Day Years Used Date Smoking Tobacco: Never Smokeless Tobacco: Never Alcohol Use Standard Drinks/Week Comments Yes 0 (1 standard drink = 0.6 oz pur e alcohol) 3 drinks weekly PHQ-2 Answer Date Recorded PHQ-2 Total Score (Adult) - Positive if 3 or more points; Administer PHQ-9 if positive 0 02/23/2021 Sex and Gender Information Value Date Recorded Sex Assigned at Not on file Gender Identity Not on file Sexual Orientation Not on file documented as of this encounter Miscellaneous Notes * Telephone Encounter - Arnaldo Lemos RN - 08/16/2021 2:43 PM CDT Prescription approved per [facility] Refill Protocol. documented in this encounter Plan of Treatment Not on file documented as of this encounter Visit Diagnoses Diagnosis Moderate episode of recurrent major depressive disorder (H) documented in this encounter Additional Health Concerns Assessment Noted Time PHQ-9 Depression Total Score: 0 02/25/20 7:04 AM CDT documented as of this encounter Care Teams Cashier Manager Relationship Specialty Start Date End Date Samantha Hodge MD [address] [employer] [address] [place] [address] PCP - General Internal Medicine 08/31/16 01/09/24 Samantha Hodge MD [address] [place] [address] PCP - General Internal Medicine 02/08/24 Samantha Hodge MD [address] [place] [address] Assigned PCP 09/07/19 01/17/24 Migue Becerra MD [address] [place] [address] Assigned Heart and Vascular Provider 07/17/21 10/29/21 Jaun Calabrese MD [address] [facility] [address] [place] [address] Assigned OBGYN Provider 04/09/2210/05 Annette Whitehead APRN ARTIFICIAL FLOWER MAKER [address] [place] [address] Assigned PCP 01/18/24 02/15/24 Samantha Hodge MD [address] [place] [address] Assigned PCP 02/16/24 documented as of this encounter
--- OUTSIDE RECORDS SUMMARY | 2024-03-17 15:41 | XMS_ITS | Encounter Summary ---
Author Name Unknown Organization [place] Address [address] [facility] [place] [address] Care Team Providers Care Oil Distributor Tender Name Role Phone Samantha Hodge MD Primary Care Provider [phone] Samantha Hodge MD Unavailable [phone] Donita Smith MD Unavailable [phone] Ian Irwin MD Unavailable [phone] Edward Manzano MD Unavailable [phone] Nancy Castro RN Unavailable Unavailable Migue Becerra MD Unavailable +- [phone] Jaun Calabrese MD Unavailable [phone] Annette Whitehead APRN SURGICAL TECHNICIAN Unavailable [phone] Samantha Hodge MD Primary Care Provider [phone] Samantha Hodge MD Unavailable [phone] Reason for Visit * Reason Comments Medication Refill amLODIPine (NORVASC) Encounter Details Date Type Department Care Team (Late st Contact Info) Description 03/06/2020 Refill [facility] [address] [place] [address] Samantha Hodge MD [address] [place] [address] Medication Refill (amLODIPine (NORVASC)) Social History Tobacco Use Types Packs/Day Years Used Date Smoking Tobacco: Never Smokeless Tobacco: Never Alcohol Use Standard Drinks/Week Comments Yes 0 (1 standard drink = 0.6 oz pur e alcohol) 3 drinks weekly PHQ-2 Answer Date Recorded PHQ-2 Score 0 12/04/2018 Sex and Gender Information Value Date Recorded Sex Assigned at Not on file Gender Identity Not on file Sexual Orientation Not on file COVID-19 Exposure Response Date Recorded In the last month, have you been in contact with someone who was confirmed or suspected to have Coronavirus / COVID-19? No / Unsure 03/05/2020 7:38 AM CDT documented as of this encounter Miscellaneous Notes * Telephone Encounter - Ana Perdue RN - 03/09/2020 9:16 AM CDT Requested Prescriptions Pending Prescriptions Disp Refills ??? amLODIPine (NORVASC) 5 MG tablet [Pharmacy Med Name: amLODIPine Besylate Oral Tablet 5 MG] 90 tablet 0 Sig: TAKE ONE TABLET BY MOUTH DAILY Calcium Channel Blockers Protocol Failed - 03/08/2020 10:03 AM Failed - Blood pressure under 140/90 in past 12 months BP Readings from Last 3 Encounters: 02/26/20 (!) 164/71 01/21/20 136/72 01/19/20 138/62 Passed - Recent (12 mo) or future (30 days) visit within the authorizing provider's specialty Patient has had an office visit with the authorizing provider or a provider within the authorizing providers department within the previous 12 mos or has a future within next 30 days. See Patient Info tab in inbasket, or Choose Columns in Meds & Orders section of the refill encounter. Passed - Medication is active on med list Passed - Patient is age 18 or older Passed - No active on record Passed - Normal serum creatinine on file in past 12 months Recent Labs Lab Test 09/03/19 1011 12/23/14 0909 CR 0.71 < > -- CREAT -- -- 0.8 < > = values in this interval not displayed. Ok to refill medication if creatinine is low Passed - No positive test in past 12 months Routing refill request to provider for review/approval because: Vitals out of range: Blood pressure * Telephone Encounter - Beverley Adams - 03/08/2020 10:02 AM CDT Requested Prescriptions Pending Prescriptions Disp Refills ??? amLODIPine (NORVASC) 5 MG tablet [Pharmacy Med Name: amLODIPine Besylate Oral Tablet 5 MG] 90 tablet 0 Sig: TAKE ONE TABLET BY MOUTH DAILY Last Written Prescription Date: 12/17/2019 Last Fill Quantity: 90, # refills: 0 Last office visit: 01/19/2020 with prescribing provider: Future Office Visit: Next 5 appointments (look out 90 days) Mar 24, 2020 9:15 AM CDT Return Visit with Noam Elizabeth MD [facility] [place] ([facility]) [address] [facility] [address] [facility] [address] Calcium Channel Blockers Protocol Failed - 03/06/2020 12:44 PM Failed - Blood pressure under 140/90 in past 12 months BP Readings from Last 3 Encounters: 02/26/20 (!) 164/71 01/21/20 136/72 01/19/20 138/62 Passed - Recent (12 mo) or future (30 days) visit within the authorizing provider's specialty Patient has had an office visit with the authorizing provider or a provider within the authorizing providers department within the previous 12 mos or has a future within next 30 days. See Patient Info tab in inbasket, or Choose Columns in Meds & Orders section of the refill encounter. Passed - Medication is active on med list Passed - Patient is age 18 or older Passed - No active on record Passed - Normal serum creatinine on file in past 12 months Recent Labs Lab Test 09/03/19 1011 12/23/14 0909 CR 0.71 < > -- CREAT -- -- 0.8 < > = values in this interval not displayed. Ok to refill medication if creatinine is low Passed - No positive test in past 12 months documented in this encounter Plan of Treatment Not on file documented as of this encounter Visit Diagnoses Diagnosis Essential hypertension Unspecified essential hypertension documented in this encounter Additional Health Concerns Infection Onset Date Last Indicated Resolved Time Rule Out COVID-19 04/05/2021 04/05/2021 04/06/2021 5:26 PM CDT Rule Out COVID-19 04/11/2021 04/11/2021 04/12/2021 5:04 PM CDT documented as of this encounter Care Teams Oil Distributor Tender Relationship Specialty Start Date End Date Samantha Hodge MD [address] [facility] [address] [place] [address] PCP - General Internal Medicine 08/31/16 01/09/24 Samantha Hodge MD [address] [facility] [address] [place] [address] PCP - General Internal Medicine 02/08/24 Samantha Hodge MD [address] [facility] [address] [place] [address] Assigned PCP 09/07/19 01/17/24 Donita Smith MD [address] [place] [id number] Assigned Infectious Disease Provider 09/17/20 10/16/20 Ian Irwin MD [address] [id number] Assigned Surgical Provider 09/17/20 10/09/20 Edward Manzano MD [address] [facility] [address] [place] [address] Assigned Heart and Vascular Provider 09/17/20 07/16/21 Castro, Nancy R, RN [facility] 04/13/2103/27 Migue Becerra MD [address] [facility] [address] [place] [address] Assigned Heart and Vascular Provider 07/17/21 10/29/21 Jaun Calabrese MD [address] [facility] [address] [place], [place] [id number] Assigned OBGYN Provider 04/09/2210/05 Annette Whitehead, DRAFTER GEOLOGICAL [facility] [address] [place], [place] [address] Assigned PCP 01/18/24 02/15/24 Samantha Hodge MD [address] [facility] [address] [place], [place] [address] Assigned PCP 02/16/24 documented as of this encounter
--- OUTSIDE RECORDS SUMMARY | 2024-03-17 15:41 | XMS_ITS | Referral Summary ---
Author Name Unknown Organization [place] Address [address] [place] [address] Care Team Providers Care Shell Mold Bonding Machine Operator Name Role Phone Samantha Hodge MD Primary Care Provider Samantha Hodge MD Unavailable [phone] Encounters Date Type Department Care Team Description 02/08/2024 Travel 02/08/2024 9:56 AM CDT - 02/08/2024 11:59 PM CDT Hospital Encounter [facility] [place] [address], [address] [place] [address] Cassandra Hernandez MD Visit for screening mammogram Discharge Disposition: Home or Self Care 01/18/2024 Telephone [facility] [address] [place] [address] Samantha Hodge MD test (Cologuard FIT test) from Last 3 Months Allergies Active Allergy Reactions Criticality Noted Date [...] daily Active Cholecalciferol (VITAMIN D3) 50 MCG (2000 UT) [...] LDL GOAL LESS THAN 130 10/02/2013 Health Alf 07/10/2013 Overview: Candy Sams RN-BSN, [facility] [phone]. FPA / [facility]G [facility] Jewelry Facer Asthma, mild intermittent 03/07/2013 Arthritis of hip [...] due to blood loss, acute 12/30/2012 03/07/2013 Immunizations Name Administration Dates Next Due COVID-19 [...] (SHINGRIX) 10/22/2018,06/04/2018 08/05/2018 Zoster vaccine, live 10/22/2018,06/04/2018,08/07 Social History Tobacco Use Types Packs/Day Years [...] 02/26/2023 9:45 AM CDT Plan of Treatment Not on file Medical Devices Implanted Type Area Computerized Mill Recorder Device Identifier Shelf Expiration Date Model / Serial / Lot Mesh Sling Single Incision Altis [id number] - [id number] Implanted:Qty: 1 on 03/08/2023 by Guille Modi MD at [facility] Mesh N/A: Vagina COLOPLAST 09/22/2025 [id number] / / [id number] [place] Nabsb Saffron Fx Strl Lf Reuse - [id number] Implanted:Qty: 1 on 03/08/2023 by Guille Modi MD at [facility] Metallic Hardware/An chor N/A: Vagina COLOPLAST [id number] 2025 [id number] / / [id number] [place] Nabsb Saffron Strl Lf Disp - [id number] Implanted:Qty: 6 on 03/08/2023 by Guille Modi MD at [facility] Metallic Hardware/An chor N/A: Vagina COLOPLAST 07/05/2025 [id number] / / [id number] Imp Device Anastomotic 2.0mm Research Associate Green [id number] Implanted:Qty: 1 on 09/05/2018 by Ian Irwin MD at [facility] Other Left: Knee [employer] 06/19/2023 [id number] / / [id number] Description:Implanted at [facility] e Flap Site Imp Device Anastomotic 3.0mm Research Associate Gold [id number] Implanted:Qty: 1 on 09/05/2018 by Ian Irwin MD at [facility] Other Left: Knee [employer] 04/11/2023 [id number] / / [id number]- [id number] Description:Implanted at [facility] e Flap Site 56mm E Cluster Hole Shell Implanted:Qty: 1 on 12/23/2012 by Valdo Ramos MD at [facility] Left: Hip 11/19/2017 [id number] 6E / / [id number] Imp Scr Osteonics 6.5x30mm Acetabular [id number] Implanted:Qty: 1 on 12/23/2012 by Valdo Ramos MD at [facility] Left: Hip 09/19/20172029-653 0-1 / / [id number] Imp Scr Osteonics 6.5x25mm Acetabular [id number] Implanted:Qty: 1 on 12/23/2012 by Valdo Ramos MD at [facility] Left: Hip 09/19/20172029-652 5-1 / / [id number] Imp Plug Hip Secur-Fit Apical Implanted:Qty: 1 on 12/23/2012 by Valdo Ramos MD at [facility] Left: Hip 11/19/2017 0-1 / / [id number] Imp Liner Strk Trident X3 Poly 36mm 0deg Sz E [id number] Implanted:Qty: 1 on 12/23/2012 by Valdo Ramos MD at [facility] Left: Hip 10/20/2017 623-00-3 6E / / [id number] Imp Stem Femoral Hip Strk Accolade Tmzf Sz #4.5 Implanted:Qty: 1 on 12/23/2012 by Valdo Ramos MD at [facility] Left: Hip 03/20/2017 [id number] 5 / / [id number] Imp Head Femoral Strk Biolox Delta Ceramic 36mm -5mm Implanted:Qty: 1 on 12/23/2012 by Valdo Ramos MD at [facility] Left: Hip 09/19/2017 6570-0-0 36 / / [id number] Procedures Procedure Name Priority Date/Time Associated Diagnosis Comments MA SCREENING RIGHT W/ AGUILAR Routine 02/08/2024 10:19 AM CDT Visit for screening mammogram DX PERIPHERAL WRIST Routine 01/03/2018 1 0:43 AM WEBSPHERE ARCHITECT Routine general medical examination at a health care facility ASTHMA ACTION PLAN Routine 03/07/2013 [...] of malignancy. Cassandra Hernandez MD IMG MAMMOGRAPHY ORDE RABLES * DX Wrist Heel Radius (01/03/2018 10:43 AM WEBSPHERE ARCHITECT) Anatomical Region Laterality Modality Dexa Bone Mineral Den sity Narrative 01/04/2018 8:56 AM WEBSPHERE ARCHITECT BONE DENSITOMETRY [address] [address] 01/03/2018 ?? PATIENT: Lavonne Thapa CHART: [id number] : ??1940 AGE: ??77 year old SEX: ??female REFERRING PROVIDER: Samantha Hodge MD ?? PROCEDURE: ??Bone density scanning was performed using DXA technology of the lumbar spine and hip. ??Scanning was performed on a [employer] scanner. ??Reporting is completed in the form [...] to another DXA performed on the same [employer] ?? machine on 11/29/2015. ?? LATERAL VERTEBRAL ASSESSMENT Procedure: ??Vertebral fracture assessment was performed in the lateral decubitus position using a [employer] ??densitometer. Indications for VFA: T-score of -1.0 or worse, age (female>69), height loss > 1.5 and history of vertebral fracture Confounding factors for VFA: None. ??The LVA scan is interpretable from T6 to L4. VFA Findings: Using the semi-quantitative analysis of Genant there was evidence of spinal deformity as [...] Advance Directives For more information, please contact: [phone] Documents on File Type Date Recorded Patient Cyber Security Manager Expl anation Advance Directives and Living Will 03/08/2023 Health Care Directiv e 01/06/2020 Advance Directives and Living Will 04/04/2021 POLST 09-12-18 * Full Code (Latest Code Status on File) Date Activated Date Inactivated Comments 03/08/2023 5:07 PM 03/09/2023 2:36 PM All basic an d advanced life-sustaining interventions are performed as appropriate Question Answer Comments Code status determined by: Discussion with patie nt/ legal decision maker * Full Code Date [...] Relationship Healthcare Agent Relationshi p Communication Courtney Thapa Daughter Health Care Agent Annette Nugent Daughter First Alternate Health Care Agent Care Teams Shell Mold Bonding Machine Operator Relationship Specialty Start Date End Date Samantha Hodge MD [address] [address] PCP - General Internal Medicine 02/08/24 Samantha Hodge MD [address] [address] Assigned PCP 02/16/24
--- OUTSIDE RECORDS SUMMARY | 2024-03-17 15:41 | XMS_ITS | Encounter Summary ---
Author Name Unknown Organization [facility] Address [address] [place] [address] Care Team Providers Care Computer Hardware Technician Name Role Phone Samantha Hodge MD Primary Care Provider [phone] Encounter Details Date Type Department Care Team (Late st Contact Info) Description 01/01/2012 Orders Only [facility] [address] [place] [address] Talita Acuna Social History Tobacco Use Types Packs/Day Years Used Date Smoking Tobacco: Never Assessed Sex and Gender Information Value Date Recorded Sex Assigned at Not on file Gender Identity Not on file Sexual Orientation Not on file documented as of this encounter Plan of Treatment Not on file documented as of this encounter Visit Diagnoses Not on filedocumented in this encounter Care Teams Computer Hardware Technician Relationship Specialty Start Date End Date Samantha Hodge MD [address] [facility] [address] [place] [address] PCP - General Internal Medicine 07/06/17 documented as of this encounter
--- OUTSIDE RECORDS SUMMARY | 2024-03-17 15:41 | XMS_ITS | Clinical Summary ---
Author Name Unknown Organization [facility] Address [place], [place] [address] Care Team Providers Care Headend Technician Name Role Phone Cassandra Hernandez MD Primary Care Provider Allergies Active Allergy Reactions Criticality Noted Date Comments Cephalexin Rash High 12/13/2012 Piperacillin Rash Low 03/30/2021 Piperacillin-Tazobactam Rash Low 10/15/2018 Tazobactam Rash Low 03/30/2021 Unlisted Allergen (Include Detail In Comments) *Unknown 09/10/1996 PN: LW Other1: -NKA Medications Medication Sig Dispensed Refills Start Date End Date Status ascorbic acid, vitamin C, 500 mg cap Take 1,000 mg by mouth. Active Flowflex COVID-19 Ag Home Test kit Administer test 06/30/2022 Active cyanocobalamin (VITAMIN B12) 500 mcg tablet Take 500 mcg by mouth. Active Docosahexanoic Acid-Eicosapent 120-180 mg cap Take 1 g by mouth. Active glucosamine sulfate 1,000 mg cap Take 1,000 mg by mouth. Active lutein 20 mg capsule Take by mouth. Active Lysine 1,000 mg tablet Take by mouth. Active Magnesium Oxide 500 mg cap Take 750 mg by mouth. Active Potassium Gluconate 2.5 mEq tab Take by mouth. Active pyridoxine, vitamin B6, (VITAMIN B6) 100 mg tablet Take 100 mg by mouth. Active vitamin E acid succinate (vitamin E succinate) 268 mg (400 unit) tab Take 400 units by mouth. Active zinc gluconate 50 mg tablet Take 50 mg by mouth. Active albuterol HFA (PRO-AIR; VENTOLIN; PROVENTIL) 90 mcg/actuation inhalerIndications:M oderate persistent asthma, unspecified whether complicated Inhale 2 Puffs by mouth every 4 hours if needed for Shortness Of Breath or Wheezing. 1 Each 5 01/31/2024 Active alendronate (FOSAMAX) 70 mg tabletIndications:Os teoporosis, unspecified osteoporosis type, unspecified pathological fracture presence Take 1 Tablet (70 mg) by mouth once a week in the morning. 12 Tablet 3 01/31/2024 Active amLODIPine (NORVASC) 5 mg tabletIndications:Es sential hypertension Take 1 Tablet (5 mg) by mouth once daily. 90 Tablet 3 01/31/2024 Active beclomethasone dipropionate (QVAR REDIHALER) 80 mcg/actuation HFAb HFA inhalerIndications:M oderate persistent asthma, unspecified whether complicated Inhale 1 Puff by mouth two times daily. 3 Each 3 01/31/2024 Active lisinopril-hydrochlo rothiazide, 20-25 mg, (PRINZIDE, ZESTORETIC) 20-25 mg per tabletIndications:Es sential hypertension Take 1 Tablet by mouth once daily. 90 Tablet 3 01/31/2024 Active sertraline (ZOLOFT) 25 mg tabletIndications:An xiety Take 1 Tablet (25 mg) by mouth once daily. 90 Tablet 3 01/31/2024 Active sertraline (ZOLOFT) 50 mg tabletIndications:An xiety Take 1 Tablet (50 mg) by mouth every morning. Take with 25 mg for total daily dose of 75 mg/day 90 Tablet 3 01/31/2024 Active verapamil SR (CALAN SR) 180 mg Sustained-Release tabletIndications:Es sential hypertension Take 2 Tablets (360 mg) by mouth once daily with a meal. 180 Tablet 3 01/31/2024 Active Active Problems Problem Noted Date Diagnosed Date Rectocele 01/26/2023 Anxiety 01/26/2023 Overview: On zoloft, well controlled Status post total knee replacement 08/30/2018 Osteoporosis without current pathological fractu re 01/17/2018 Asthma, mild intermittent 03/07/2013 Essential hypertension 05/02/2003 Overview: Hypertension Hypertension Resolved Problems Problem Noted Date Diagnosed Date Resolved Date Recurrent major depressive d isorder, in full remission 01/31/2024 02/01/2024 Moderate episode of recurren t major depressive disorder 01/31/2024 02/01/2024 Midline cystocele 01/26/2023 10/29/2023 Vaginal vault prolapse 01/26/202310/29 Fracture of right hip 04/04/20212022 Encounters Date Type Department Care Team Description 02/08/2024 Orders Only [facility] Scanner 1 scan: (1-Ord) [facility], SCREEN RT W/JOSE A, 02/08/2024 02/01/2024 Telephone [facility] [address] [place] [address] Cassandra Hernandez MD Questions (/) 01/31/2024 9:15 AM DIRECTOR OF TEACHING AND LEARNING Office Visit [facility] [address] [place] [address] Cassandra Hernandez MD Medicare ANNUAL (subsequent) Visit (83 yr/F/U on Rectal prolapse) 01/31/2024 Travel 01/12/2024 Refill [facility] [address] [place] [address] Cassandra Hernandez MD Refill Request (Verapamil Sr) from Last 3 Months Immunizations Name Administration Dates Next Due Influenza A (H1N1), Inactivated 12/14/2009 Influenza, High-dose Inactivated 019,10/04/2018,09/11/2017,2015,09/08/2015,09/11/2014 Influenza, High-dose Quadriv alent Inactivated 09/04/2023,09/07/2022,08/17/2021,2019 Influenza, IIV4 12/14/2009 Influenza, Inactivated AIIV4 (Age 65+ Years) Preserv Free 08/18/2020 Pneumococcal Poly,23-Valent (Pneumovax) 09/05/2012 Pneumococcal conj 13-Valent (Prevnar 13) 04/30/2018 TD, UNSPECIFIED 01/16/2003 Td (Age >=7 Years) 01/16/2003,07/26/1998 Tdap 01/26/2023,08/07/2011 Tuberculin Skin Test, Unspecified 12/27/2012 Zoster (Shingrix-RZV, recombinant) 10/22/2018, Zoster (Zostavax-ZVL, live) 08/07/2011 Social History Tobacco Use Types Packs/Day Years Used Date Smoking Tobacco: Never Passive Smoke Exposure: Never Smokeless Tobacco: Never Tobacco Cessation:Counseling Given: Yes Alcohol Use Standard Drinks/Week Comments Yes 0 (1 standard drink = 0.6 oz pur e alcohol) PHQ-2 Answer Date Recorded PHQ-2 TOTAL SCORE 0 01/31/2024 Social Connections Answer Date Recorded Frequency of Communication with Friends and Fami ly 0 01/31/2024 Financial Resource Strain Answer Date R ecorded Difficulty of Paying Living Expenses 3 01/31/2024 Difficulty of Paying Living Expenses Not on file 01/31/2024 Food Insecurity Answer Date Recorded Worried About Running Out of Food in the Last Ye ar 1 01/31/2024 Transportation Needs Answer Date Record ed Lack of Transportation (Medical) 1 01/31/2024 Housing Stability Answer Date Recorded Unable to Pay for Housing in the Last Year 1 01/31/2024 Sex and Gender Information Value Date Recorded Sex Assigned at Not on file Gender Identity Not on file Sexual Orientation Not on file Obstetrics History Last Filed Vital Signs Vital Sign Reading Time Taken Comments Blood Pressure 140/62 01/31/2024 10:00 AM DIRECTOR OF TEACHING AND LEARNING ma nual Pulse 62 01/31/2024 9:23 AM DIRECTOR OF TEACHING AND LEARNING Temperature 36.9 ??C (98.4 ??F) 01/26/2023 11:[address] Respiratory Rate - - Oxygen Saturation 99% 01/31/2024 9:23 AM DIRECTOR OF TEACHING AND LEARNING Inhaled Oxygen Concentration - - Weight 62.2 kg (137 lb 3.2 oz) 01/31/2024 9:23 A M DIRECTOR OF TEACHING AND LEARNING Height 159.4 cm (5' 2.75) 01/31/2024 9:23 AM CS T Body Mass Index 24.5 01/31/2024 9:23 AM DIRECTOR OF TEACHING AND LEARNING Plan of Treatment Health Maintenance Due Date Last Done Comments Influenza for age 65+ 07/27/2024 09/04/2023 , 09/07/2022, 08/17/2021, Additional history exists BMI (ht and wt on same day) for age 18+ 01/30/2025 01/31/2024, 10/29/2023, 01/26/2023 Depression screening for age 12+ 01/31/2025 02/01/2024, 01/31/2024, 01/26/2023 Medicare Wellness for age 65+ 01/31/2025 01/31/2024, 01/26/2023 Tetanus booster 01/26/2033 01/26/2023, 07/27, 01/16/2003, Additional history exists Pneumococcal series for age 65+ Completed 8, 09/05/2012 Zoster (shingles) series for age 50+ Completed 10/22/2018, 06/04/2018, 08/07/2011 Tdap Completed 01/26/2023, 08/07/2011 DEXA/DXA scan for age 65+ Completed 02/05/2023 COVID-19 vaccine series Completed 09/04/20, 09/07/2022, 01/15/2021, Additional history exists Procedures Procedure Name Priority Date/Time Associated Diagnosis Comments SCAN-MAMMOGRAPHY REPORT 02/08/2024 12:00 AM CDT HEMOGLOBIN Routine 01/31/2024 10:14 AM DIRECTOR OF TEACHING AND LEARNING Screening for deficiency anemia LIPID PANEL W REFLEX MEASURED LDL Routine 01/31/2024 10:14 AM DIRECTOR OF TEACHING AND LEARNING Lipid screening BASIC METABOLIC PANEL Routine 01/31/2024 10:14 AM DIRECTOR OF TEACHING AND LEARNING Screening for diabetes mellitus (DM) Essential hypertension XR DXA BONE DENSITY 1 SITE AXIAL AND 1 SITE PERIPHERAL Routine 02/05/2023 2:10 PM CDT Menopause from Last 3 Months or Most Recently Relevant to Health Maintenance Results * SCAN-MAMMOGRAPHY REPORT (02/08/2024 12:00 AM CDT) Anatomical Region Laterality Modality Other Scanner OTHER * LIPID PANEL W REFLEX MEASURED LDL (01/31/2024 10:14 AM DIRECTOR OF TEACHING AND LEARNING) CHOLESTEROL,TOTAL 184 100 - 199 mg/dL 01/31/2024 5:12 PM DIRECTOR OF TEACHING AND LEARNING [facility] Comment: Cholesterol, Total Reference Ranges Desirable <200 mg/dL Borderline 200-239 mg/dL High >=240 mg/dL TRIGLYCERIDES 94 <150 mg/dL 01/31/2024 5:12 PM DIRECTOR OF TEACHING AND LEARNING [facility] HDL CHOLESTEROL 60 >40 mg/dL 5:12 PM DIRECTOR OF TEACHING AND LEARNING [facility] NON-HDL CHOLESTEROL 124 <145 mg/dl 01/31/2024 5:12 PM DIRECTOR OF TEACHING AND LEARNING [facility] CHOL/HDL RATIO 3.07 <4.50 01/31/2024 5:12 PM DIRECTOR OF TEACHING AND LEARNING [facility] LDL CHOLESTEROL 105 <=130 mg/dL 01/31/2024 5:12 PM DIRECTOR OF TEACHING AND LEARNING [facility] VLDL CHOLESTEROL 19 <=30 mg/dL 01/31/2024 5:12 PM DIRECTOR OF TEACHING AND LEARNING [facility] PROVIDER ORDERED STATUS RANDOM 01/31/2024 5:12 PM DIRECTOR OF TEACHING AND LEARNING [facility] Blood BLOOD SPECIMEN / Unknown Venipuncture / Unknown 01/31/2024 10:14 AM DIRECTOR OF TEACHING AND LEARNING 01/31/2024 10:16 AM DIRECTOR OF TEACHING AND LEARNING Cassandra Hernandez MD CHEMISTRY [facility] [address] [place] [address], * HEMOGLOBIN (01/31/2024 10:14 AM DIRECTOR OF TEACHING AND LEARNING) HEMOGLOBIN 13.2 12.0 - 16.0 g/dL 01/31/2024 10:20 AM DIRECTOR OF TEACHING AND LEARNING [facility] MCV 89 80 - 100 fL 01/31/2024 10:20 AM DIRECTOR OF TEACHING AND LEARNING [facility] Blood BLOOD SPECIMEN / Unknown Venipuncture / Unknown 01/31/2024 10:14 AM DIRECTOR OF TEACHING AND LEARNING 01/31/2024 10:16 AM DIRECTOR OF TEACHING AND LEARNING Cassandra Hernandez MD HEMATOLOGY [facility] [place] [place] [address], * (ABNORMAL) BASIC METABOLIC PANEL (01/31/2024 10:14 AM [facility]) SODIUM 139 136 - 145 mmol/L 01/31/2024 5:12 PM [facility] POTASSIUM 4.3 3.5 - 5.1 mmol/L 01/31/2024 5:12 PM [facility] CHLORIDE 101 98 - 107 mmol/L 01/31/2024 5:12 PM [facility] CO2,TOTAL 29 22 - 29 mmol/L 01/31/2024 5:12 PM [facility] ANION GAP 9 5 - 18 01/31/2024 5:12 PM [facility] GLUCOSE 99 70 - 99 mg/dL 01/31/2024 5:12 PM [facility] CALCIUM 10.3(H) 8.8 - 10.2 mg/dL 01/31/2024 5:12 PM [facility] BUN 27(H) 8 - 23 mg/dL 01/31/2024 5:12 PM [facility] CREATININE 0.81 0.50 - 0.90 mg/dL 01/31/2024 5:12 PM [facility] BUN/CREAT RATIO 33(H) 10 - 20 5:12 PM [facility] eGFR 73(L) >90 mL/min/1.7 3m2 01/31/2024 5:12 PM [facility] Comment:As of 2022, eG FR is calculated by the CKD-EPI creatinine equation without race adjustment. ??eGFR can be influenced by muscle mass, exercise, and diet. ??The reported eGFR is an estimation only and is only applicable if the renal function is stable. Blood BLOOD SPECIMEN / Unknown Venipuncture / Unknown 01/31/2024 10:14 AM DIRECTOR OF TEACHING AND LEARNING 01/31/2024 10:16 AM DIRECTOR OF TEACHING AND LEARNING Cassandra Hernandez MD CHEMISTRY [facility] [address] [place] [address], * (ABNORMAL) XR DXA BONE DENSITY 1 SITE AXIAL AND 1 SITE PERIPHERAL (02/05/2023 2:10 PM CDT) Anatomical Region Laterality Modality LUMBAR SPINE Other Impressions 02/06/2023 7:40 PM CDT Osteoporosis. RECOMMENDATIONS: The National Osteoporosis Foundation recommends pharmacologic treatment for patients with T-scores of -2.5 or less, patients with prior history of fragility fractures, or patients with 10-year probability of greater than 3% at hips or greater than 20% of suffering major osteoporotic fractures. Recommend continued optimization of calcium and vitamin D intake through dietary means and/or supplementation and regular exercise. Continue current Alendronate (Fosamax) medication treatment. ??Consider a drug holiday if on Fosamax greater than five years. No comparison for efficacy of treatment. Shayla Mata PA-C [facility] 02/06/2023 Narrative 02/06/2023 7:40 PM CDT For Patients: Results are automatically released to your [facility] ([facility]) account once available, in compliance with federal regulations. This means that you may see your results before your provider has had a chance to review them. Please allow 2-3 business days for your provider to comment on the results. XR DXA Bone Mineral Density (BMD) EXAM LOCATION: [address] [address] PATIENT NAME: Lavonne Thapa DATE OF : 1940 EXAM DATE: 02/05/2023 REQUESTING PROVIDER: Cassandra Hernandez MD GENDER AT : female HEIGHT: 5' 3 (01/26/2023) WEIGHT: ??136 lb (01/26/2023) MENOPAUSAL STATUS: Postmenopausal RACE/ETHNICITY: White RISK FACTORS: Height Loss (2 inches or more), History of Fragility Fracture (at a major site) and White Race CURRENT MEDICATION FOR BONE LOSS: Alendronate (Fosamax) INDICATION: Follow-up of pharmacologic treatment and Menopause COMPARISON DATE(S): None DXA scans are compared to prior studies for a patient only when the two (or more) studies were performed on the same scanner. It is not possible to compare data generated on one scanner to data from another because there are not standards in DXA equipment. This applies even if the two scanners are made by the same extract mixer. PROCEDURE: Dual-energy x-ray absorptiometry performed with routine technique. Reporting is completed in the form of a T-score. The T-score represents the standard deviation from peak bone mass based on young healthy adult. A Z-score is used for diagnosis in premenopausal women, and for men under the age of 50. FINDINGS: RESULT LUMBAR SPINE L2 - L3 ??(EXCLUDE L1, L4)BMD: 1.494 g/cm2 T-Score: + 2.3 Z-Score: + 4.2 Change from prior: ??None RESULT FOREARM Left Forearm distal radius BMD: 0.510 g/cm2 T-Score: - 2.7 Z-Score: + 0.0 Change from prior: ??None WHO criteria: Normal: T-score at or above -1 SD Osteopenia: T-score between -1.1 and -2.4 SD Osteoporosis: T-score at or below -2.5 SD Cassandra Hernandez MD DEXA from Last 3 Months or Most Recently Relevant to Health Maintenance Advance Directives Documents on File Type Date Recorded Patient Casting Finisher Expl anation Healthcare Directive 01/06/2020 020 Care Teams Headend Technician Relationship Specialty Start Date End Date Cassandra Hernandez MD [address] [place] [address] PCP - General Family Practice 01/08/23
--- OUTSIDE RECORDS SUMMARY | 2024-03-17 15:41 | XMS_ITS | Encounter Summary ---
Author Name Unknown Organization [place] Address [address] [facility] [place] [address] Care Team Providers Care Um Specialist Name Role Phone Samantha Hodge MD Primary Care Provider [phone] Katty Guadarrama Unavailable TraceewaMagi Collins BIOMASS PLANT TECHNICIAN SENIOR NUCLEAR MEDICINE TECHNOLOGIST Unavailable + Harry Marbart Goldstein BIOMASS PLANT TECHNICIAN SENIOR NUCLEAR MEDICINE TECHNOLOGIST Unavailable + Mar Mcdonald BIOMASS PLANT TECHNICIAN SENIOR NUCLEAR MEDICINE TECHNOLOGIST Unavailable + Magi Barboza BIOMASS PLANT TECHNICIAN SENIOR NUCLEAR MEDICINE TECHNOLOGIST Unavailable + Mar Mcdonald BIOMASS PLANT TECHNICIAN SENIOR NUCLEAR MEDICINE TECHNOLOGIST Unavailable + Mar Mcdonald BIOMASS PLANT TECHNICIAN SENIOR NUCLEAR MEDICINE TECHNOLOGIST Unavailable + Magi Barboza BIOMASS PLANT TECHNICIAN SENIOR NUCLEAR MEDICINE TECHNOLOGIST Unavailable + Harmony Marshall BIOMASS PLANT TECHNICIAN SENIOR NUCLEAR MEDICINE TECHNOLOGIST Unavailable + Samantha Hodge MD Unavailable + Harmony Marshall BIOMASS PLANT TECHNICIAN SENIOR NUCLEAR MEDICINE TECHNOLOGIST Unavailable + Magi Barboza BIOMASS PLANT TECHNICIAN SENIOR NUCLEAR MEDICINE TECHNOLOGIST Unavailable + Samantha Hodge MD Unavailable + Magi Barboza BIOMASS PLANT TECHNICIAN SENIOR NUCLEAR MEDICINE TECHNOLOGIST Unavailable + Harmony Marshall BIOMASS PLANT TECHNICIAN SENIOR NUCLEAR MEDICINE TECHNOLOGIST Unavailable + Samantha Hodge MD Unavailable [phone] Donita Smith MD Unavailable [phone] Ian Irwin MD Unavailable [phone] Edward Manzano MD Unavailable [phone] Nancy Castro RN Unavailable Unavailable Migue Becerra MD Unavailable + [phone] Jaun Calabrese MD Unavailable [phone] Annette Whitehead BIOMASS PLANT TECHNICIAN SENIOR NUCLEAR MEDICINE TECHNOLOGIST Unavailable [phone] Samantha Hodge MD Primary Care Provider [phone] Samantha Hodge MD Unavailable [phone] Reason for Visit * Reason Comments Medication Refill Verapamil Encounter Details Date Type Department Care Team (Late st Contact Info) Description 03/01/2018 Refill [facility] [address] [facility] [address] [place] [address] Samantha Hodge MD [address] [facility] [address] [place] [address] Medication Refill (Verapamil) Social History Tobacco Use Types Packs/Day Years Used Date Smoking Tobacco: Never Smokeless Tobacco: Never Alcohol Use Standard Drinks/Week Comments Yes 0 (1 standard drink = 0.6 oz pur e alcohol) 3 drinks weekly Sex and Gender Information Value Date Recorded Sex Assigned at Not on file Gender Identity Not on file Sexual Orientation Not on file documented as of this encounter Miscellaneous Notes * Telephone Encounter - Debra Freire - 03/04/2018 2:22 PM CDT Requested Prescriptions Pending Prescriptions Disp Refills ??? verapamil (CALAN-SR) 180 MG CR tablet [Pharmacy Med Name: Verapamil HCl ER Oral Tablet ExtendedRelease 180 MG] 180 tablet 0 Sig: TAKE TWO TABLETS BY MOUTH DAILY Calcium Channel Blockers Protocol Failed 03/01/2018 9:47 AM Failed - Blood pressure under 140/90 in past 12 months BP Readings from Last 3 Encounters: 12/26/17 152/70 12/14/16 138/64 08/31/16 168/82 Passed - Normal ALT in past 12 months Recent Labs Lab Test 12/26/17 1018 ALT 27 Passed - Recent (12 mo) or future (30 days) visit within the authorizing provider's specialty Patient had office visit in the last 12 months or has a visit in the next 30 days with authorizing provider or within the authorizing provider's specialty. See Patient Info tab in inbasket, or Choose Columns in Meds & Orders section of the refill encounter. Last OV: 12/26/17 Passed - Patient is age 18 or older Passed - No active on record Passed - Normal serum creatinine on file in past 12 months Recent Labs Lab Test 12/26/17 1018 CR 0.59 Passed - No positive test in past 12 months Routing refill request to provider for review/approval because: BP out of SO parameters Please advise, thanks. documented in this encounter Plan of Treatment Not on file documented as of this encounter Visit Diagnoses Diagnosis Essential hypertension Unspecified essential hypertension documented in this encounter Additional Health Concerns Infection Onset Date Last Indicated Resolved Time Rule Out COVID-19 04/05/2021 04/05/2021 04/06/2021 5:26 PM CDT Rule Out COVID-19 04/11/2021 04/11/2021 04/12/2021 5:04 PM CDT documented as of this encounter Care Teams Um Specialist Relationship Specialty Start Date End Date Samantha Hodge MD [address] [facility] [address] [place] [address] PCP - General Internal Medicine 08/31/16 01/09/24 Magi Barboza APRN SENIOR NUCLEAR MEDICINE TECHNOLOGIST [address] [place] [address] PCP - Assigned PCP 10/13/18 10/19/18 Mar Mcdonald APRN SENIOR NUCLEAR MEDICINE TECHNOLOGIST [address] [place] [address] PCP - Assigned PCP 07/21/18 10/12/18 Mar Mcdonald APRN SENIOR NUCLEAR MEDICINE TECHNOLOGIST [address] [place] [address] PCP - Assigned PCP 10/20/18 11/23/18 Magi Barboza APRN SENIOR NUCLEAR MEDICINE TECHNOLOGIST [address] [place] [address] PCP - Assigned PCP 11/24/18 11/30/18 Mar Mcdonald APRN SENIOR NUCLEAR MEDICINE TECHNOLOGIST [address] [place] [address] PCP - Assigned PCP 12/01/18 01/28/19 Samantha Hodge MD [address] [address] PCP - General Internal Medicine 02/08/24 Katty Guadarrama, TRAVELING SALES EXECUTIVE Clinic Manager [employer] 09/11/18 01/07/19 Mar Mcdonald APRN SENIOR NUCLEAR MEDICINE TECHNOLOGIST [address] [place] [address] Assigned PCP 03/21/19 05/21/19 Magi Barboza APRN SENIOR NUCLEAR MEDICINE TECHNOLOGIST [address] [place] [address] Assigned PCP 10/06/18 05/24/19 Harmony Marshall APRN SENIOR NUCLEAR MEDICINE TECHNOLOGIST [address] [place] [address] Assigned PCP 07/06/19 07/12/19 Samantha Hodge MD [address] [facility] [address] [place] [address] Assigned PCP 07/13/19 08/09/19 Harmony Marshall APRN SENIOR NUCLEAR MEDICINE TECHNOLOGIST [address] [place] [address] Assigned PCP 05/25/19 06/28/19 Magi Barboza APRN SENIOR NUCLEAR MEDICINE TECHNOLOGIST [address] [place] [address] Assigned PCP 06/29/19 07/05/19 Samantha Hodge MD [address] [address] Assigned PCP 08/17/19 08/23/19 Magi Barboza APRN SENIOR NUCLEAR MEDICINE TECHNOLOGIST [address] [place] [address] Assigned PCP 08/10/19 08/16/19 Harmony Marshall APRN SENIOR NUCLEAR MEDICINE TECHNOLOGIST [address] [place] [address] Assigned PCP 08/24/19 09/06/19 Samantha Hodge MD [address] [facility] [address] [place] [address] Assigned PCP 09/07/19 01/17/24 Donita Smith MD [address] [place] [address] Assigned Infectious Disease Provider 09/17/20 10/16/20 Ian Irwin MD [address] [facility] [address] [place] [address] Assigned Surgical Provider 09/17/20 10/09/20 Edward Manzano MD [address] [facility] [address] [place] [address] Assigned Heart and Vascular Provider 09/17/20 07/16/21 Nancy Castro, RN Clinic Manager [employer] 04/13/2103/27 Migue Becerra MD [address] [facility] [address] [place] [address] Assigned Heart and Vascular Provider 07/17/21 10/29/21 Jaun Calabrese MD [address] [facility] [address] [place], [place] [address] Assigned OBGYN Provider 04/09/2210/05 Annette Whitehead, BIOMASS PLANT TECHNICIAN SENIOR NUCLEAR MEDICINE TECHNOLOGIST [address] [place], [place] [address] Assigned PCP 01/18/24 02/15/24 Samantha Hodge MD [address] [facility] 200 [place] [address] Assigned PCP 02/16/24 documented as of this encounter
--- OUTSIDE RECORDS SUMMARY | 2024-03-17 15:41 | XMS_ITS | Encounter Summary ---
Author Name Unknown Organization [place] Address [address] [place] [address] Care Team Providers Care Manager Channel Name Role Phone Annette Whitehead APRN PERFORMANCE IMPROVEMENT ANALYST Unavailable [phone] Samantha Hodge MD Primary Care Provider [phone] Encounter Details Date Type Department Care Team (Latest Contact Info) Description 02/08/2024 Travel Social History Tobacco Use Types Packs/Day Years [...] Diagnoses Not on filedocumented in this encounter Additional Health Concerns Assessment Noted Time PHQ-9 Depression Total Score: 0 10/25/20 22 11:31 AM MEDICAL IMAGING TECH documented as of this encounter Care Teams Manager Channel Relationship Specialty Start Date End Date Samantha Hodge MD [address] [facility] [address] [place] [address] PCP - General Internal Medicine 02/08/24 Annette Whitehead APRN PERFORMANCE IMPROVEMENT ANALYST [address] [place] [address] Assigned PCP 01/18/24 02/15/24 documented as of this encounter
--- OUTSIDE RECORDS SUMMARY | 2024-03-17 15:41 | XMS_ITS | Encounter Summary ---
Author Name Unknown Organization [place] Address [address] [facility] [place] [address] Care Team Providers Care Peer Counselor Name Role Phone Samantha Hodge MD Primary Care Provider [phone] Samantha Hodge MD Unavailable [phone] Jaun Calabrese MD Unavailable [phone] Annette Whitehead APRN ELECTRICAL HELPER Unavailable [phone] Samantha Hodge MD Primary Care Provider [phone] Samantha Hodge MD Unavailable [phone] Reason for Visit * Reason Comments Medication Refill Encounter Details Date Type Department Care Team (Late st Contact Info) Description 12/18/2022 Refill [facility] [address] [place] [address] Samantha Hodge MD [address] [place] [address] Medication Refill Social History Tobacco [...] Telephone Encounter - Talita Zamorano RN - 12/20/2022 11:49 AM CST Prescription approved per [employer] Refill Protocol. Due around 04/24/23 for next appointment IE PADDER documented in this encounter Plan of Treatment Not on file documented as of this encounter Visit Diagnoses Diagnosis Moderate episode of recurrent major depressive disorder (H) documented in this encounter Additional Health Concerns Assessment Noted Time PHQ-9 Depression Total Score: 0 10/25/20 11:31 AM COOKIE PADDER documented as of this encounter Care Teams Peer Counselor Relationship Specialty Start Date End Date Samantha Hodge MD [address] [facility] [address] [place] [address] PCP - General Internal Medicine 08/31/16 01/09/24 Samantha Hodge MD [address] [address] PCP - General Internal Medicine 02/08/24 Samantha Hodge MD [address] [facility] [address] [place] [address] Assigned PCP 09/07/19 01/17/24 Jaun Calabrese MD [address] [facility] [address] [place], [place] [address] Assigned OBGYN Provider 04/09/2210/05 Annette Whitehead APRN ELECTRICAL HELPER [address] [place] [address] Assigned PCP 01/18/24 02/15/24 Samantha Hodge MD [address] [facility] [address] [place] [address] Assigned PCP 02/16/24 documented as of this encounter
--- OUTSIDE RECORDS SUMMARY | 2024-03-17 15:41 | XMS_ITS | Clinical Summary ---
Author Name Unknown Organization Pending sale to [facility] Address [address] [place] [address] Care Team Providers Care Retoucher Photoengraving Name Role Phone Samantha Hodge MD Primary Care Provider [phone] Source Comments You are receiving this document as you are listed as the primary care provider,follow-up provider, or the patient has been referred to you for consultation.This is in compliance with the Medicare and[facility] EHR Incentive Program,which states Providers who transition their patient to another setting of careor provider of care or refers their patient to another provider of care shouldprovide summary care record for each transition of care or referral. Pending sale to [facility] Allergies Active Allergy Reactions Criticality Noted Date Comments Cephalexin Rash High 03/21/2013 Other 09/10/1996 PN: LW Other1: -NKA Piperacillin Sod-Tazobactam So Rash Low 10/15/2018 Review Contrast Media 09/10/1996 PN: LW CM1: CONTRAST- NKA Reaction : Review Food Intolerance 12/10/2007 PN: LW FI1: NKA Medications Medication Sig Dispensed Refills Start Date End Date Status ALBUTEROL 90 MCG/ACT IN AERS Inhale 2-4 puffs by mouth every 4-6 hours as needed for breathing difficulties. Do not use more than 12 puffs in 24 hours. Active verapamil HCl (AKA COVERA HS) 180 MG 24 hour release tablet Take 1 tablet by mouth daily (every 24 hours). LW Addl Instr:Indicated for: High Blood Pressure 90 3 07/18/2007 Active lisinopril-hydrochlor othiazide (AKA PRINZIDE;ZESTORETIC) 10-12.5 MG tablet Take 1 tablet by mouth daily (every 24 hours). LW Addl Instr:Indicated for: High Blood Pressure 90 3 07/12/2010 Active UNKNOWN MEDICATION Indications: PN: 07/12/2010 Active beclomethasone (AKA QVAR) 80 MCG/ACT inhaler Inhale 1 puff 2 times daily. LW Addl Instr:Rinse mouth/gargle after use. Indicated for: Asthma 14.6 3 07/12/2010 Active Active Problems Problem Noted Date Diagnosed Date Asthma 05/02/2003 Overview: Asthma NOS Essential hypertension 05/02/2003 Overview: Hypertension Immunizations Name Administration Dates Next Due Influenza IIV3 (Trivalent) F marlo [place], 65+ Yrs ([id number]) 09/11/2014 Td 07/26/1998 Family History Medical History Relation Name Comments Cancer Mother endometrial Amblyopia/Strabismus Maternal Aunt Cataract Maternal Aunt Macular Degeneration Maternal Aunt Cataract Maternal Uncle Diabetes Negative Family History Glaucoma Negative Family History Retinal Detachment Negative Family History Relation Name Status Comments Mother Maternal Aunt Maternal Uncle Social History Tobacco Use Types Packs/Day Years Used Date Smoking Tobacco: Never Smokeless Tobacco: Never Sex and Gender Information Value Date Recorded Sex Assigned at Not on file Gender Identity Not on file Sexual Orientation Not on file Last Filed Vital Signs Vital Sign Reading Time Taken Comments Blood Pressure 114/72 11/22/2009 12:59 PM CONSUMER EDUCATOR Pulse 78 10/28/2008 5:39 PM CONSUMER EDUCATOR Temperature 36.8 ??C (98.2 ??F) 04/29/2009 9:25 AM CD T Respiratory Rate 16 10/28/2008 5:39 PM CONSUMER EDUCATOR Oxygen Saturation - - Inhaled Oxygen Concentration - - Weight 74.8 kg (165 lb) 12/28/2011 10:39 AM CONSUMER EDUCATOR Height 165.1 cm (5' 5) 12/28/2011 10:39 AM CONSUMER EDUCATOR Body Mass Index 27.46 12/28/2011 10:39 AM CONSUMER EDUCATOR Plan of Treatment Health Maintenance Due Date Last Done Comments Dexa 2007 DTaP/Tdap/Td (2 - Tdap) 08/07/2021 08/07/20 11, 01/16/2003, 07/26/1998 COVID-19 Vaccine ( season) 2023 01/15/2021, 12/25/2020 Influenza (#1) 2023 08/18/2020, 07/2019, 10/04/2018, Additional history exists Medicare Annual Wellness Visit 11/26/2023 Pneumococcal 65+ Yrs Completed 04/30/2018, 09/05/20 12 Zoster/Shingles Completed 10/22/2018, 05/26, 08/07/2011 HepA Aged Out No longer eligi ble based on patient's age to complete this topic HepB Aged Out No longer eligi ble based on patient's age to complete this topic Hib Aged Out No longer eligi ble based on patient's age to complete this topic IPV (Polio) Aged Out No longer eligi ble based on patient's age to complete this topic MCV4 Aged Out No longer eligi ble based on patient's age to complete this topic Care Teams Retoucher Photoengraving Relationship Specialty Start Date End Date Samantha Hodge MD [address] [facility] [address] [place] [address] PCP - General Internal Medicine 07/06/17
--- NOTE | 2024-03-17 16:00 | CT_ITS ---
Patient: MARK WORTHINGTON Facility:?[facility] Patient ID:?[id number] Site Patient ID:?[id number]. Site :?[id number] Study:?CT-Hip Right WITHOUT-03/17/2024 4:19:32 PM Ordering Physician:ANDREAS Final Report: INDICATION: Right hip pain. Right hip replacement. TECHNIQUE: Noncontrast CT of the right hip. COMPARISON: Radiographs from 03/06/2024. FINDINGS: Right total hip arthroplasty. There are screws associated with the acetabular component. 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 Chronic osseous defect is noted involving the medial and anterior superomedial bony acetabulum. The defect spans an approximately 2 centimeter medial/lateral by 3 centimeter anterior/posterior extent and is noted on coronal image number 17 of series 5 and axial image number 68 of series 2. There is no lucency about the acetabular screws. No lucency otherwise about the acetabular component. No abnormal lucency about the femoral component. No definitive acute fracture. There is atrophy involving portions of the gluteus minimus and medius muscles compatible with chronic strain changes. No adjacent fluid collection or space-occupying hematoma. On the axial images of the entire pelvis, a left total hip arthroplasty is present. There are degenerative changes of the sacroiliac joints and within the lower lumbar spine. Probable sequelae of remote sacral fracture. IMPRESSION: 1. Right total hip arthroplasty with screws associated with the acetabular component. 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 No lucency about the acetabular screws or acetabular component otherwise. No femoral component loosening. No definite acute periprosthetic fracture. 2. No fluid collection or hematoma. 3. Remote strain changes involving right-sided gluteal musculature. Please note that all CT scans at this facility use dose modulation, iterative reconstruction, and/or weight-based dosing when appropriate to reduce radiation dose to as low as reasonably achievable. Dictated by Georgi Farmer MD @ 03/18/2024 9:38:38 AM Signed by:?Georgi Farmer MD @03/18/2024 9:38:38 AM (Electronic Signature)
== END 2024-03-17 15:36 | disposition home or self-care (01) ==
PROVIDERS: Visit Provider Orthopaedic Surgery Sports Medicine
DX: M25.551 Pain in right hip (principal); S76.011A Strain of muscle, fascia and tendon of right hip, initial encounter; Z96.641 Presence of right artificial hip joint
CPT/HCPCS: 73700

== ENCOUNTER 2025-08-22 08:37 | Emergency (ER) | payer MEDICARE, SELFPAY ==
--- OUTSIDE RECORDS SUMMARY | 2014-11-16 04:54 | XMS_ITS | Continuity of Care Document ---
Author Organization [facility] Address [address] [address] [place] [address] Phone Care Team Providers Care Sample Processor Name Role Phone Logan Dorsey DO Unavailable Unavailable Medications Medication Instructions Dosage Effective Dates (start - stop) Status Comments MiralaxBisacodylMagCit Colon Prep Use as directed - Active Procedures Procedure Date Colorectal Ca Scrn Not Hi Risk 14 Advance Directives Directive Yes / No Effective Date File Name No Information Encounters Encounter Description Practice Location Reason(s) For Visit Diagnoses Date Provider Providers Copied on Encounter [facility], [address] [address], [place], [id number], [place] tel:[phone] [facility] Colon Cancer ScreeningExternal Referral 4 Willian Hill. [address] [facility], [facility] [address], [place], [place], [id number] , [place]. tel:[phone] Benja Luciano MD. tel:[phone] erring Provider: Referral Self, USE FOR SELF REFERRALS. [facility], [address] [address], [place], [id number], [place] tel:[phone] [facility] No Information 4 Willian Hill. [address] [facility], [facility] [address], [place], [place], [id number] , [place]. [phone] Referring Provider: Samantha Cole, [address] [facility] [address] [address], [place], [address]. tel:[phone] [facility], [address] [address], [place], [id number], [place] tel:[phone] [facility] No Information 4 Link MD L[place]. [address] [facility] [facility], [address], [place], [id number] , [place]. [phone] Referring Provider: Referral Self, USE FOR SELF REFERRALS. Family History Family Member Type Diagnosis Age At Onset No Information Payers Payer name Insurance type Covered alliance party ID Authoriza tion(s) No Information Social History Type Description Quantity Date Captured Comments Sex Female Smoking Status No Information Chief Complaint And Reason For Visit No Information Reason For Referral Reason For Referral No Information Plan Of Treatment Date Type Action Status Referral Ordered: Colonoscopy Appointment date/timeframe: 01/17/2015 ordered History Of Present Illness Encounter Date Complaint History Of Prese nt Illness No Information Functional Status Date Functional Assessmen t No Information Instructions Date Instruction Additional Infor mation No Information Assessments Type Assessment Date assessment Colon Cancer Screening 14 assessment External Referral Patient Care Teams Name Effective Dates (start - stop) Status Members No Information
--- OUTSIDE RECORDS SUMMARY | 2014-11-16 04:54 | XMS_ITS | Continuity of Care Document ---
Author Organization [facility] Address [address] [address] [place] [address] Phone Care Team Providers Care Track Layer Name Role Phone Logan Dorsey DO Unavailable [...] Diagnoses Date Provider Providers Copied on Encounter [facility], [address] [address], [place], [id number], [place] tel:[phone] [facility] Colon Cancer ScreeningExternal Referral 4 Willian [place]. [address] [facility] [facility] [address], [place], [place], [id number] , [place]. tel:[phone] Benja Luciano MD. tel:[phone] erring Provider: Referral Self, USE FOR SELF REFERRALS. [facility], [address] [address], [place], [place], [address], [place] tel:[phone] [facility] No Information 4 Willian [place]. [address] [facility], [facility] [address], [place], [place], [id number] , [place]. [phone] Referring Provider: Samantha Cole, [address] [facility] [address], [place], [address]. tel:[phone] [facility], [address] [address], [place], [id number], [place] tel:[phone] [facility] No Information 4 Link MD [place]. [address] [facility], [place], [id number] , [place]. [phone] Referring Provider: Referral Self, USE FOR SELF REFERRALS. Family History Family Member Type Diagnosis Age At Onset No Information Payers Payer name Insurance type Covered democrat ID Authoriza tion(s) No Information Social History [...]
--- OUTSIDE RECORDS SUMMARY | 2025-08-22 08:39 | XMS_ITS | Clinical Summary ---
Author Organization [email or web address] Address [address] [place] [id number] Care Team Providers Care Undertaker Assistant Name Role Phone Cassandra Hernandez MD Primary Care Provider Allergies Active Allergy Reactions Criticality Noted Date Comments Cephalexin Rash High 12/13/2012 Piperacillin Rash Low 03/30/2021 Piperacillin-Tazobactam Rash Low 10/15/2018 Tazobactam Rash Low 03/30/2021 Unlisted Allergen (Include Detail In Comments) *Unknown 09/10/1996 PN: LW Other1: -NKA Medications ascorbic acid, vitamin C, 500 mg cap Take 1,000 mg by mouth. Active Flowflex COVID-19 Ag Home Test kit Administer test 2 Active cyanocobalamin (VITAMIN B12) 500 mcg tablet Take 500 mcg by mouth. Active Docosahexanoic Acid-Eicosapent 120-180 mg cap Take 1 g by mouth. Active glucosamine sulfate 1,000 mg cap Take 1,000 mg by mouth. Active lutein 20 mg capsule Take by mouth. Activ e Lysine 1,000 mg tablet Take by mouth. Activ e Magnesium Oxide 500 mg cap Take 750 mg by mouth. Active Potassium Gluconate 2.5 mEq tab Take by mouth. Activ e pyridoxine, vitamin B6, (VITAMIN B6) 100 mg tablet Take 100 mg by mouth. Active vitamin E acid succinate (vitamin E succinate) 268 mg (400 unit) tab Take 400 units by mouth. Active zinc gluconate 50 mg tablet Take 50 mg by mouth. Active albuterol HFA (PRO-AIR; VENTOLIN; PROVENTIL) 90 mcg/actuation inhalerIndication s:Moderate persistent asthma, unspecified whether complicated (HC) Inhale 2 Puffs by mouth every 4 hours if needed for Shortness Of Breath or Wheezing. 1 Each 5 5 Active amLODIPine (NORVASC) 5 mg tabletIndications :Essential hypertension Take 1 Tablet (5 mg) by mouth once daily. 90 Tablet 3 5 Active beclomethasone dipropionate (QVAR REDIHALER) 80 mcg/actuation HFAb HFA inhalerIndication s:Moderate persistent asthma, unspecified whether complicated (HC) Inhale 1 Puff by mouth two times daily. 3 Each 3 5 Active lisinopril-hydroc hlorothiazide, 20-25 mg, (PRINZIDE, ZESTORETIC) 20-25 mg per tabletIndications :Essential hypertension Take 1 Tablet by mouth once daily. 90 Tablet 3 5 Active sertraline (ZOLOFT) 50 mg tabletIndications :Anxiety Take 1 Tablet (50 mg) by mouth once daily in the morning. Take with 25 mg for total daily dose of 75 mg/day 90 Tablet 3 5 Active sertraline (ZOLOFT) 25 mg tabletIndications :Anxiety Take 1 Tablet (25 mg) by mouth once daily. 90 Tablet 3 5 Active verapamil SR (CALAN SR) 180 mg Sustained-Release tabletIndications :Essential hypertension Take 2 Tablets (360 mg) by mouth once daily with a meal. 180 Tablet 3 5 Active Active Problems Problem Noted Date Diagnosed Date Rectocele 01/26/2023 Anxiety 01/26/2023 Overview (01/26/2023): On zoloft, well controlled Status post total knee replacement 08/30/2018 Osteoporosis without current pathological fractu re 01/17/2018 Asthma, mild intermittent 03/07/2013 Essential hypertension 05/02/2003 Overview (01/26/2023): Hypertension Hypertension Resolved Problems Problem Noted Date Diagnosed Date Resolved Date Recurrent major depressive d isorder, in full remission 01/31/2024 02/01/2024 Moderate episode of recurren t major depressive disorder 01/31/2024 02/01/2024 Midline cystocele 01/26/2023 10/29/2023 Vaginal vault prolapse 01/26/202310/29 Fracture of right hip 04/04/20212022 Immunizations Immunization Administration Dates Next Due Influenza A (H1N1), Inactivated 12/14/2009 Influenza, High-dose Inactivated 024,09/03/2019,10/04/2018,2016,09/26/2016,09/08/2015,09/11/2014 Influenza, High-dose Quadriv alent Inactivated 09/04/2023,09/07/2022,08/17/2021,2019 Influenza, IIV4 12/14/2009 Influenza, Inactivated AIIV4 (Age 65+ Years) Preserv Free 08/18/2020 Pneumococcal Poly,23-Valent (Pneumovax) 09/05/2012 Pneumococcal conj 13-Valent (Prevnar 13) 04/30/2018 TD, UNSPECIFIED 01/16/2003 Td (Age >=7 Years) 01/16/2003,07/26/1998 Tdap 01/26/2023,08/07/2011 Tuberculin Skin Test, Unspecified 12/27/2012 Zoster (Shingrix-RZV, recombinant) 10/22/2018, Zoster (Zostavax-ZVL, live) 08/07/2011 Family History Medical History Relation Name Comments Anesthesia Problem No Family History Cancer-breast No Family History Cancer-colon No Family History Relation Name Status Comments Father Mother Social History Tobacco Use Types Packs/Day Years Used Date Smoking Tobacco: Never Passive Smoke Exposure: Never Smokeless Tobacco: Never Tobacco Cessation:Counseling Given: Yes Alcohol Use Standard Drinks/Week Comments Yes 0 (1 standard drink = 0.6 oz pur e alcohol) PHQ-2 Answer Date Recorded PHQ-2 TOTAL SCORE 0 02/02/2025 Social Connections Answer Date Recorded Do you often feel lonely or isolated from those around you? 0 02/02/2025 Financial Resource Strain Answer Date R ecorded Difficulty of Paying Living Expenses 3 02/02/2025 Difficulty of Paying Living Expenses Not on file 02/02/2025 Food Insecurity Answer Date Recorded Do you worry your food will run out before you are able to buy more? 1 02/02/2025 Transportation Needs Answer Date Record ed Does lack of transportation keep you from medica l appointments? 1 02/02/2025 Does lack of transportation keep you from work, meetings or getting things that you need? 1 02/02/2025 Housing Stability Answer Date Recorded What is your housing situation today? 1 02/02/2025 Utilities Answer Date Recorded Do you have trouble paying f or utilities (for example, heat, electricity, water, phone)? 1 02/02/2025 Comments No Sex and Gender Information Value Date Recorded Sex Assigned at Not on file Legal Sex Female 8:22 AM SCALE TANK OPERATOR Gender Identity Not on file Sexual Orientation Not on file Obstetrics History Last Filed Vital Signs Vital Sign Reading Time Taken Comments Blood Pressure 124/63 02/02/2025 1:05 PM CDT Pulse 74 02/02/2025 1:05 PM CDT Temperature 36.9 C (98.4 F) 01/26/2023 11:28 AM SCALE TANK OPERATOR Respiratory Rate - - Oxygen Saturation 99% 02/02/2025 1:05 PM CDT Inhaled Oxygen Concentration - - Weight 60.2 kg (132 lb 12.8 oz) 02/02/2025 1:05 PM CDT Height 159 cm (5' 2.6) 02/02/2025 1:05 PM CDT Body Mass Index 23.83 02/02/2025 1:05 PM CDT Plan of Treatment Health Maintenance Due Date Last Done Comments RSV vaccine for adults or (1 - 1-dose 75+ series) 2017 COVID-19 vaccine series ( season) 2025 09/04/2023, 09/07/2022, 01/15/2021, Additional history exists Influenza Vaccine (#1) 2025 , 08/18/2020, 09/03/2019, Additional history exists BMI (ht and wt on same day) for age 18+ 02/02/2026 02/02/2025, 01/31/2024, 10/29/2023, Additional history exists Depression screening for age 12+ 02/03/2026 02/03/2025, 02/02/2025, 02/02/2025, Additional history exists Medicare Wellness for age 65+ 02/03/2026 02/02/2025, 01/31/2024, 01/26/2023 Tetanus booster 01/26/2033 01/26/2023, 07/27, 01/16/2003, Additional history exists Pneumococcal series for age 50+ Completed 04/30/2018, 09/05/2012 Zoster (shingles) series for age 50+ Completed 10/22/2018, 06/04/2018, 08/07/2011 DEXA/DXA scan for age 65+ Completed 02/02/2025, Hepatitis B series for 19+ Aged Out N o longer eligible based on patient's age to complete this topic Procedures Procedure Name Priority Date/Time Associated Diagnosis Comments XR DXA BONE DENSITY 1 SITE AXIAL AND 1 SITE PERIPHERAL Routine 02/02/2025 2:07 PM CDT Menopause from Last 3 Months or Most Recently Relevant to Health Maintenance Results * (ABNORMAL) XR DXA BONE DENSITY 1 SITE AXIAL AND 1 SITE PERIPHERAL (02/02/2025 2:07 PM CDT) Anatomical Region Laterality Modality LUMBAR SPINE Other Impressions 02/03/2025 12:51 PM CDT Osteopenia. Due to the stability of the bone density, continue present medication if indicated. RECOMMENDATIONS: The National Osteoporosis Foundation recommends pharmacologic [...] exercise. Continue current Alendronate (Fosamax) medication treatment. Consider a drug holiday from bisphosphonates if indicated. Repeat bone density in 2 years. Shayla Mata PA-C [facility] 02/03/2025 Narrative 02/03/2025 12:51 PM CDT For Patients: Results are automatically released to your [employer] ([employer]) account once available, in compliance with federal regulations. This means that you may see your results before your provider has had a chance to review them. Please allow 2-3 business days for your provider to comment on the results. XR DXA Bone Mineral Density (BMD) EXAM LOCATION: [facility] [address] [facility] [address] PATIENT NAME: Lavonne Thapa DATE OF : 1940 EXAM DATE: 02/02/2025 REQUESTING PROVIDER: Cassandra Hernandez MD GENDER AT : female HEIGHT: 5' 2.6 (02/02/2025) WEIGHT: 132 lb 12.8 oz (02/02/2025) MENOPAUSAL STATUS: Postmenopausal RACE/ETHNICITY: White RISK FACTORS: Aromatase Inhibitors (Arimidex, etc.), Height Loss (2 inches or more), History of Fragility Fracture (at a major site), and White Race CURRENT MEDICATION FOR BONE LOSS: Alendronate (Fosamax) INDICATION: Menopause COMPARISON DATE(S): 2022 DXA scans are compared to prior studies for a patient only when the two (or more) studies were performed on the same scanner. It is not possible to compare data generated on one scanner to data from another because there are not standards in DXA equipment. This applies even if the two scanners are made by the same french lecturer. PROCEDURE: Dual-energy x-ray absorptiometry performed with routine technique. Reporting is completed in the form of a T-score. The T-score represents the standard deviation from peak bone mass based on young healthy adult. A Z-score is used for diagnosis in premenopausal women, and for men under the age of 50. FINDINGS: RESULT LUMBAR SPINE L1 - L4 (EXCLUDE L1, L4) BMD: 1.525 g/cm2 T-Score: + 2.5 Z-Score: + 4.5 Change from prior in 2022: Increase 2.1%. RESULT FOREARM Left Forearm distal radius BMD: 0.538 g/cm2 T-Score: - 2.3 Z-Score: + 0.7 Change from prior in 2022: Increase 5.5%. WHO criteria: Normal: T-score at or above -1 SD Osteopenia: T-score between -1.1 and -2.4 SD Osteoporosis: T-score at or below -2.5 SD Cassandra Hernandez MD DEXA Final R esult from Last 3 Months or Most Recently Relevant to Health Maintenance Insurance [employer] MEDICARE ADVANTAGE MR Advance Directives Documents on File Type Date Recorded Patient Operator Helper Expl anation Healthcare Directive 01/06/2020 020 Care Teams Undertaker Assistant Relationship Specialty Start Date End Date Cassandra Hernandez MD PCP - General Family Practice 01/08/23
--- OUTSIDE RECORDS SUMMARY | 2025-08-22 08:39 | XMS_ITS | Encounter Summary ---
Author Organization [facility] Address [address], [place] [address] Care Team Providers Care Job Developer Name Role Phone Samantha Hodge MD Primary Care Provider [phone] Encounter Details Date Type Department Care Team (Late st Contact Info) Description 01/01/2012 Orders Only [facility] [address] [place] [address] Talita Acuna Social History Tobacco Use Types Packs/Day Years Used Date Smoking Tobacco: Never Assessed Comments No Sex and Gender Information Value Date Recorded Sex Assigned at Not on file Legal Sex Female 5:45 AM CDT Gender Identity Not on file Sexual Orientation Not on file documented as of this encounter Plan of Treatment Not on file documented as of this encounter Visit Diagnoses Not on filedocumented in this encounter Care Teams Job Developer Relationship Specialty Start Date End Date Samantha Hodge MD PCP - General Internal Medicine 07/06/17 documented as of this encounter
--- OUTSIDE RECORDS SUMMARY | 2025-08-22 08:39 | XMS_ITS | CCD ---
Author Name Interface, [email or web address] Address [address] [place] [address] [facility] Address [facility] [place] [address] Reason for Visit Social History
--- OUTSIDE RECORDS SUMMARY | 2025-08-22 08:39 | XMS_ITS ---
Author Organization [facility] Care Team Providers Care General House Worker Name Role Phone Velia Jackman Unavailable Unavailable Magi Barboza Unavailable Unavailable Allergies and adverse reactions Code CodeSystem Substance Reaction Severity StartDate Concern Status 2231 RXNORM Cephalexin Unknown 09/10/2018 active Care Team Name Role Address Phone Organization Dates Velia Jackman PCP [address], [address], [place] (Office): : [facility] 04/03/2021 - 04/15/2021 Magi Barboza [address] [facility] [address], [place], [address], [place] (Office): : [facility] 04/03/2021 - 04/15/2021 Immunizations Immunization Status Vaccine Details Vaccine Code CodeSystem Date Notes Influenza completed Influenza, split virus, quadrivalent, injectable, contains preservative 158 CVX created date: 09/11/2018 administer ed date: 09/12/2018 TB 2 Step Mantoux Skin Test completed tuberculin skin test; unspecified formulation lotNumber: [id number] expiry: 11/13/2018 Mfg: Aplisol Given 0.1 ml Right Forearm intradermally Step 2 of Multi-step with next step required 98 CVX created date: 09/21/2018 consent date: 09/20/2018 administer ed date: 09/21/2018 Educated by Mercy Rogers on 09/20/2018 TB 2 Step Mantoux Skin Test completed tuberculin skin test; unspecified formulation lotNumber: [id number] expiry: 10/26/2019 Mfg: Aplisol Given 0.1 ml Right Forearm intradermally Step 1 of Multi-step with next step required 98 CVX created date: 09/11/2018 consent date: 09/10/2018 administer ed date: 09/11/2018 Educated by Nasreen Pérez RN on 09/10/2018 Td: Tetanus/Diphthe mariah completed tetanus and diphtheria toxoids, adsorbed, preservative free, for adult use (2 Lf of tetanus toxoid and 2 Lf of diphtheria toxoid) 09 CVX created date: 09/11/2018 administer ed date: 01/16/2003 Prevnar 13 completed pneumococcal conjugate vaccine, 13 valent 133 CVX created date: 09/11/2018 administer ed date: 04/30/2018 Fluzone High-Dose influenza vaccine completed Influenza, split virus, quadrivalent, injectable, preservative free 150 CVX created date: 04/04/2021 administer ed date: 08/18/2020 Shingrix Herpes Zoster vaccination completed zoster vaccine, live 121 CVX created date: 04/04/2021 administer ed date: 10/22/2018 Shingrix Herpes Zoster vaccination completed zoster vaccine, live 121 CVX created date: 04/04/2021 administer ed date: 06/04/2018 SARS-COV-2 (COVID-19) completed SARS-COV-2 (COVID-19) vaccine, mRNA, spike protein, LNP, preservative free, 30 mcg/0.3mL dose Mfg: Pfiezer Step 2 of Multi-step with next step required 208 CVX created date: 04/03/2021 consent date: 04/03/2021 administer ed date: 01/15/2021 SARS-COV-2 (COVID-19) completed SARS-COV-2 (COVID-19) vaccine, mRNA, spike protein, LNP, preservative free, 30 mcg/0.3mL dose Mfg: PFIZER Given intramuscularly Step 1 of Multi-step with next step required 208 CVX created date: 04/03/2021 consent date: 04/03/2021 administer ed date: 12/25/2020 Mental Status Section Date Assessment Total Score Description 04/14/2021 BIMS 15 cognitively int act CAM 0 No delirium ind icated PHQ-9 00 04/09/2021 BIMS 15 cognitively int act CAM 0 No delirium ind icated PHQ-9 00 Problems Problem # Description Date of onset Resolved Date Code CodeSystem Concern Status 1 ACUTE KIDNEY FAILURE, UNSPECIFIED 04/03/[address] active 2 ACUTE POSTHEMORRHAGIC ANEMIA 04/03/[address] active 3 AGE-RELATED OSTEOPOROSIS WITHOUT CURRENT PATHOLOGICAL FRACTURE 04/03/[address] active 4 FRACTURE OF UNSPECIFIED PART OF NECK OF RIGHT FEMUR, SUBSEQUENT ENCOUNTER FOR CLOSED FRACTURE WITH ROUTINE HEALING 04/03/[address] active 5 MAJOR DEPRESSIVE DISORDER, SINGLE EPISODE, UNSPECIFIED 04/03/[address] active 6 MUSCLE WEAKNESS (GENERALIZED) 04/03/[address] active 7 OTHER ABNORMALITIES OF GAIT AND MOBILITY 04/03/[address] active 8 OTHER SPECIFIED SOFT TISSUE DISORDERS 04/03/[address] active 9 PRESENCE OF RIGHT ARTIFICIAL HIP JOINT 04/03/[address] active 10 UNILATERAL PRIMARY OSTEOARTHRITIS, UNSPECIFIED HIP 04/03/[address] active 11 DISRUPTION OF EXTERNAL OPERATION (SURGICAL) WOUND, NOT ELSEWHERE CLASSIFIED, SUBSEQUENT ENCOUNTER 09/10/20 18 03/26/[address] completed 12 ENCOUNTER FOR OTHER SPECIFIED SURGICAL AFTERCARE 09/10/20 18 03/26/[address] completed 13 ESSENTIAL (PRIMARY) HYPERTENSION 09/10/[address] active 14 GENERALIZED ANXIETY DISORDER 09/10/20 18 03/26/[address] completed 15 MILD INTERMITTENT ASTHMA, UNCOMPLICATED 09/10/[address] active 16 MUSCLE WEAKNESS (GENERALIZED) 09/10/20 18 03/26/[address] completed 17 OTHER ABNORMALITIES OF GAIT AND MOBILITY 09/10/20 18 03/26/[address] completed 18 OTHER CHRONIC PAIN 09/10/20 18 03/26/[address] completed 19 OTHER MALAISE 09/10/20 18 03/26/[address] completed 20 PERSONAL HISTORY OF MALIGNANT NEOPLASM OF BREAST 09/10/[address] active 21 PRESENCE OF LEFT ARTIFICIAL KNEE JOINT 09/10/20 18 03/26/[address] completed Reason for Referral No Reasons for Referral Entered Social History Social History Observation Description Start Date End Date Code Code System Current Smoking Status Tobacco smoking consumption unknown 346728321 SNOMED CT Sex Assigned At Female 1940 [address]50-4 [facility] Gender Identity Sexual Orientation Vital Signs Code Code System Vitals Name Values and Units Timing Information 9279-1 [facility] Respiratory Rate Value=18.0 Units=/m in 04/14/2021 8462-4 INC Blood Pressure-Diastolic Value=64 Un its=mmHg 04/14/2021 8480-6 LOINC Blood Pressure-Systolic Gnjdk=544 Un its=mmHg 04/14/2021 8310-5 [facility] Body Temperature Value=98.1 Units= F 04/14/2021 66898-6 INC O2 % BldC Oximetry Value=96.0 Units= % 04/14/2021 82211-1 INC Pain Level Value=0.0 04/14/2021 8867-4 INC Heart rate Value=75.0 Units=/min 11927-1 LOINC Weight Pduuh=503.8 Units=Lbs 8302-2 LOINC Height Value=64.0 Units=Inches 09/10/2018
--- OUTSIDE RECORDS SUMMARY | 2025-08-22 08:39 | XMS_ITS | Patient Health Record ---
Author Organization [facility] Address [address] [place] [address] Care Team Providers Care Fretted String Instrument Repairer Name Role Phone Samantha Hodge Primary Care Provider Krunal Magaña Unavailable [phone] Allergies Allergen (clinical drug ingredient) Drug/Non Drug Allergy documented on EMR Reaction Allergy Type Onset Date Status piperacillin / tazobactam Zosyn Unknown Drug Allergy Active cephalexin Cephalexin Unknown Drug Allergy Activ e Reason For Referral No Information Medications Medication SIG (Take, Route, Frequency, Duration) Notes Start Date End Date Status Magnesium Oxide 250 MG 3 tablet as neede d Orally Once a day Active Lysine 1000 MG 1 tab Orally once daily Active Lutein 20 MG 1 capsule with a meal Orally Once a day Active Glucosamine Sulfate 1000 MG 1 capsule with a meal Orally Once a day Active Docosahexaenoic Acid-EPA 120-180 mg sig po Active Zinc Gluconate 50 MG 1 tablet Orally Once a day Active Cyanocobalamin 500 MCG 1 tablet Orally Once a day Active Vitamin E 400 UNIT 1 capsule Orally Once a day Active Vitamin C 500 MG 1 capsule Orally Active Verapamil HCl ER 180 MG 2 tablet Orally Once a day Active Ascorbic Acid 500 MG 1 tablet Orally Once a day Active Vitamin B6 100 MG 1 tablet Orally Once a day Active Alendronate Sodium 70 MG 1 tablet 30 min utes before the first food, beverage or medicine of the day with plain water Orally once weekly Active Pyridoxine HCl 100 MG 1 tablet Orally Once a day Active Albuterol Sulfate HFA 108 (90 Base) MCG/ACT 2 puff as needed Inhalation every 4 hrs Active Potassium Gluconate 2.5 MEQ 1 tablet Orally Once a day Active Lisinopril-hydroCHLOROthi azide 20-25 MG 1 tablet Orally Once a day Active Sertraline HCl 50 MG 1 tablet Orally Once a day take with 25mg to equal 75mg daily Active Beclomethasone Diprop HFA 80 MCG/ACT 1 puff Inhalation Once a day Active amLODIPine Besylate 5 MG 1 tablet Orally Once a day Active Social History Tobacco Use: Social History Observation Description Date Details (start date - stop date) Never Smoker NA - NA Tobacco Use/Smoking Question Answer Notes Are you a nonsmoker Alcohol Screen (Audit-C) Question Answer Notes Did you have a drink containing alcohol in the p ast year? 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 Problem Herniation of rectum into vagina (567650247) PROLAPSE - RECTOCELE (N81.6) Active confirmed Plan Of Treatment No Information Insurance Providers Payer Name Payer Address Payer Phone Subscriber Number Group Number Insured Name Patient Relationship to Insured Coverage Start Date Coverage End Date [employer] 2021 (Client bill) [address] [place], [place] [id number] Lavonne Blake Self - patient is the insured 3 Medical (General) History Medical History History ICD Code high blood pressure Arthritis Chicken Pox anxiety asthma breast cancer Surgical History Surgery Date(Month/Year) right hip replacement 2020 left hip replacement 2012 left knee replacement 2018 hysterectomy 1996 mastectomy 1989 Bladder sling 2009 Posterior vaginal repair, pa ravaginal repair, bilateral sacrospinous ligament fixation, pubovaginal sling with [place] 03/08/2023
--- OUTSIDE RECORDS SUMMARY | 2025-08-22 08:39 | XMS_ITS | Encounter Summary ---
Author Organization [place] Address [address] [facility] [place] [address] Care Team Providers Care Pump Tender Name Role Phone Samantha Hodge MD Primary Care Provider [phone] Samantha Hodge MD Unavailable Jaun Calabrese MD Unavailable [phone] Annette Whitehead APRN CODING COMPLIANCE MANAGER Unavailable Samantha Hodge MD Primary Care Provider Samantha Hodge MD Unavailable Annette Whitehead APRN CODING COMPLIANCE MANAGER Unavailable Samantha Hodge MD Unavailable Annette Whitehead APRN CODING COMPLIANCE MANAGER Unavailable Reason for Visit * Reason Comments Medication Refill Encounter Details Date Type Department Care Team (Late st Contact Info) Description 12/18/2022 Refill [facility] [address] [place] [address] Samantha Hodge MD [address] [place] [address] Medication Refill Social History Tobacco Use Types Packs/Day Years Used Date Smoking Tobacco: Never Smokeless Tobacco: Never Alcohol Use Standard Drinks/Week Comments Yes 0 (1 standard drink = 0.6 oz pur e alcohol) 3 drinks weekly PHQ-2 Answer Date Recorded PHQ-2 Score 0 10/25/2022 Comments No Sex and Gender Information Value Date Recorded Sex Assigned at Not on file Legal Sex Female 3:24 AM GERIATRICS PHYSICIAN Gender Identity Not on file Sexual Orientation Not on file documented as of this encounter Miscellaneous Notes * Telephone Encounter - Talita Zamorano RN - 12/20/2022 11:49 AM CST Prescription approved per [facility] Refill Protocol. Due around 04/24/23 for next appointment ATRICS PHYSICIAN documented in this encounter Plan of Treatment Not on file documented as of this encounter Visit Diagnoses Diagnosis Moderate episode of recurrent major depressive disorder (H) documented in this encounter Additional Health Concerns Assessment Noted Time PHQ-9 Depression Total Score: 0 10/25/20 11:31 AM GERIATRICS PHYSICIAN documented as of this encounter Care Teams Pump Tender Relationship Specialty Start Date End Date Samantha Hodge MD [address] [place] [address] PCP - General Internal Medicine 08/31/16 01/09/24 Samantha Hodge MD [address] [place] [address] PCP - General Internal Medicine 02/08/24 04/27/25 Samantha Hodge MD [address] [place] [address] Assigned PCP 09/07/19 01/17/24 Jaun Calabrese MD [address] [place] [address] Assigned OBGYN Provider 04/09/2210/05 Annette Whitehead, CERTIFIED CYTOTECHNOLOGIST CODING COMPLIANCE MANAGER [address] [place] [address] Assigned PCP 01/18/24 02/15/24 Samantha Hodge MD [address] [facility] [address] [place] [address] Assigned PCP 02/16/24 05/17/24 Annette Whitehead, CERTIFIED CYTOTECHNOLOGIST CODING COMPLIANCE MANAGER [address] [place], [place] [address] Assigned PCP 05/18/24 09/16/24 Samantha Hodge MD [address] [facility] [address] [place], [place] [address] Assigned PCP 09/17/24 02/14/25 Annette Whitehead, CERTIFIED CYTOTECHNOLOGIST CODING COMPLIANCE MANAGER [address] [place], [place] [address] Assigned PCP 02/15/25 documented as of this encounter
--- OUTSIDE RECORDS SUMMARY | 2025-08-22 08:39 | XMS_ITS | Encounter Summary ---
Author Organization [place] Address [address] [facility] [place] [address] Care Team Providers Care Director Radio News Name Role Phone Samantha Hodge MD Primary Care Provider [phone] Samantha Hodge MD Unavailable Jaun Calabrese MD Unavailable [phone] Annette Whitehead APRN LOGISTICS TEAM LEADER Unavailable Samantha Hodge MD Primary Care Provider Samantha Hodge MD Unavailable Annette Whitehead APRN LOGISTICS TEAM LEADER Unavailable Samantha Hodge MD Unavailable Annette Whitehead APRN LOGISTICS TEAM LEADER Unavailable Reason for Visit * Reason Comments Medication Refill Encounter Details Date Type Department Care Team (Late st Contact Info) Description 12/04/2022 Refill [facility] [address] [place] [address] Samantha Hodge MD [address] [place] [address] Medication Refill Social History Tobacco [...] on file Legal Sex Female 3:24 AM EGG TESTER Gender Identity Not on file Sexual Orientation Not on file COVID-19 Exposure Response Date Recorded In the last 10 days, have yo u been in contact with someone who was confirmed or suspected to have Coronavirus/COVID-19? No / Unsure 11/16/2022 8:53 AM EGG TESTER documented as of this encounter Miscellaneous Notes * Telephone Encounter - Talita Zamorano RN - 12/06/2022 1:03 PM CST Medication is being filled for 1 time refill only due to: has upcoming appt Next 5 appointments (look out 90 days) Jan 17, 2023 8:00 AM (Arrive by 7:40 AM) Annual Wellness Visit with Samantha Hodge MD [facility] ([facility] ) [address] [place] [address] TESTER documented in this encounter Plan of Treatment Not on file documented as of this encounter Visit Diagnoses Diagnosis Essential hypertension Unspecified essential hypertension documented in this encounter Additional Health Concerns Assessment Noted Time PHQ-9 Depression Total Score: 0 10/25/20 11:31 AM EGG TESTER documented as of this encounter Care Teams Director Radio News Relationship Specialty Start Date End Date Samantha Hodge MD [address] [place] [address] PCP - General Internal Medicine 08/31/16 01/09/24 Samantha Hodge MD [address] [place] [address] PCP - General Internal Medicine 02/08/24 04/27/25 Samantha Hodge MD [address] [place], [place] [address] Assigned PCP 09/07/19 01/17/24 Jaun Calabrese MD [address] [facility] [address] [place], [place] [address] Assigned OBGYN Provider 04/09/2210/05 Annette Whitehead, FENCE REPAIRMAN LOGISTICS TEAM LEADER [address] [place], [place] [address] Assigned PCP 01/18/24 02/15/24 Samantha Hodge MD [address] [facility] [address] [place], [place] [address] Assigned PCP 02/16/24 05/17/24 Annette Whitehead, FENCE REPAIRMAN LOGISTICS TEAM LEADER [address] [place], [place] [address] Assigned PCP 05/18/24 09/16/24 Samantha Hodge MD [address] [facility] [address] [place], [place] [address] Assigned PCP 09/17/24 02/14/25 Annette Whitehead, FENCE REPAIRMAN LOGISTICS TEAM LEADER [address] [place], [place] [address] Assigned PCP 02/15/25 documented as of this encounter
--- OUTSIDE RECORDS SUMMARY | 2025-08-22 08:39 | XMS_ITS | Clinical Summary ---
Author Organization [facility] Address [address] [place] [address] Care Team Providers Care Patient Service Rep Name Role Phone Samantha Hodge MD Primary Care Provider [phone] Source Comments You are receiving this document as you are listed as the primary care provider,follow-up provider, or the patient has been referred to you for consultation.This is in compliance with the Medicare and[facility] Hospital[facility] EHR Incentive Program,which states Providers who transition their patient to another setting of careor provider of care or refers their patient to another provider of care shouldprovide summary care record for each transition of care or referral. [facility] Active Allergy Reactions Criticality Noted Date Comments Cephalexin Rash High 03/21/2013 Other 09/10/1996 PN: LW Other1: -NKA Piperacillin Sod-Tazobactam So Rash Low 10/15/2018 Review Contrast Media 09/10/1996 PN: LW CM1: CONTRAST- NKA Reaction : Review Food Intolerance 12/10/2007 PN: LW FI1: NKA Medications ALBUTEROL 90 MCG/ACT IN AERS Inhale 2-4 puffs by mouth every 4-6 hours as needed for breathing difficulties. Do not use more than 12 puffs in 24 hours. Active verapamil HCl (AKA COVERA HS) 180 MG 24 hour release tablet Take 1 tablet by mouth daily (every 24 hours). LW Addl Instr:Indicate d for: High Blood Pressure 90 3 08/23/200 7 Active lisinopril-hydr ochlorothiazide (AKA PRINZIDE;ZESTOR ETIC) 10-12.5 MG tablet Take 1 tablet by mouth daily (every 24 hours). LW Addl Instr:Indicate d for: High Blood Pressure 90 3 0 Active UNKNOWN MEDICATION Indications: PN: 0 Active beclomethasone (AKA QVAR) 80 MCG/ACT inhaler Inhale 1 puff 2 times daily. LW Addl Instr:Rinse mouth/gargle after use. Indicated for: Asthma 14.6 3 0 Active Active Problems Problem Noted Date Diagnosed Date Asthma 05/02/2003 Overview (07/18/2017): Asthma NOS Essential hypertension 05/02/2003 Overview (07/18/2017): Hypertension Immunizations Immunization Administration Dates Next Due Influenza IIV3 (Trivalent) F marlo Cuevas, 65+ Yrs (81748) 09/11/2014 Td 07/26/1998 Family History Medical History Relation Name Comments Cancer Mother endometrial Amblyopia/Strabismus Maternal Aunt Cataract Maternal Aunt Macular Degeneration Maternal Aunt Cataract Maternal Uncle Diabetes Negative Family History Glaucoma Negative Family History Retinal Detachment Negative Family History Relation Name Status Comments Mother Maternal Aunt Maternal Uncle Social History Tobacco Use Types Packs/Day Years Used Date Smoking Tobacco: Never Smokeless Tobacco: Never Comments No Sex and Gender Information Value Date Recorded Sex Assigned at Not on file Legal Sex Female 5:45 AM CDT Gender Identity Not on file Sexual Orientation Not on file Last Filed Vital Signs Vital Sign Reading Time Taken Comments Blood Pressure 114/72 11/22/2009 12:59 PM SHOPPER Pulse 78 10/28/2008 5:39 PM SHOPPER Temperature 36.8 C (98.2 F) 04/29/2009 9:25 AM CDT Respiratory Rate 16 10/28/2008 5:39 PM SHOPPER Oxygen Saturation - - Inhaled Oxygen Concentration - - Weight 74.8 kg (165 lb) 12/28/2011 10:39 AM SHOPPER Height 165.1 cm (5' 5) 12/28/2011 10:39 AM SHOPPER Body Mass Index 27.46 12/28/2011 10:39 AM SHOPPER Plan of Treatment Health Maintenance Due Date Last Done Comments Dexa 2007 RSV Vaccine (1 - 1-dose 75+ series) 2017 DTaP/Tdap/Td Vaccine (2 - Tdap) 08/07/2021 08/07/2011, 01/16/2003, 07/26/1998 Medicare Annual Wellness Visit 11/26/2024 COVID-19 Vaccine (3 - season) 2025 01/15/2021, 12/25/2020 Influenza Vaccine (#1) 2025 0, 09/03/2019, 10/04/2018, Additional history exists Pneumococcal Vaccine 50+ Yrs Completed 04/30/2018, 09/05/2012 Zoster/Shingles Vaccine Completed 10/22/20 18, 06/04/2018, 08/07/2011 HepA Vaccine Aged Out No longer eligi ble based on patient's age to complete this topic HepB Vaccine Aged Out No longer eligi ble based on patient's age to complete this topic Hib Vaccine Aged Out No longer eligi ble based on patient's age to complete this topic IPV (Polio) Vaccine Aged Out No longe r eligible based on patient's age to complete this topic MCV4 Vaccine Aged Out No longer eligi ble based on patient's age to complete this topic Meningococcal B Vaccine Aged Out No l onger eligible based on patient's age to complete this topic Insurance [employer] MEDICARE Care Teams Patient Service Rep Relationship Specialty Start Date End Date Samantha Hodge MD PCP - General Internal Medicine 07/06/17
--- OUTSIDE RECORDS SUMMARY | 2025-08-22 08:39 | XMS_ITS ---
Author Organization [facility] Care Team Providers Care Per Diem Physical Therapist Name Role Phone Iveth Krueger Unavailable Unavailable Emiliana Zapata (Liz) Unavailable Unavail able Allergies and adverse reactions Code CodeSystem Substance Reaction Severity StartDate Concern Status Cephalexin Hcl (rash) Unknown Unknown ac tive Care Team Name Role Address Phone Organization Dates Iveth Krueger PCP [facility] [address], [place], [facility], [facility] (Office): : [facility] 12/26/2012 - 01/01/2013 Emiliana Zapata (Liz) [facility] [address] [place] [address] [address], [place], [facility], [place] (Office): (Pager): [facility] 12/26/2012 - 01/01/2013 Immunizations Immunization Status Vaccine Details Vaccine Code CodeSystem Date Notes TB 2 Step Mantoux Skin Test completed tuberculin skin test; unspecified formulation Given Right Forearm Step 1 of Multi-step 98 CVX created date: 12/30/2012 consent date: 12/29/2012 administer ed date: 12/27/2012 Educated by on 12/27/2012 Resident discharged prior to due date of second PPD Mental Status Section Date Assessment Total Score Description 01/01/2013 BIMS 15 cognitively int act PHQ-9 00 Reason for Referral No Reasons for Referral Entered Social History Social History Observation Description Start Date End Date Code Code System Current Smoking Status Tobacco smoking consumption unknown 857044517 SNOMED CT Sex Assigned At Female 1940 17879-6 [facility] Gender Identity Sexual Orientation Vital Signs Code Code System Vitals Name Values and Units Timing Information 9279-1 [facility] Respiratory Rate Value=16.0 Units=/m in 01/01/2013 8462-4 [facility] Blood Pressure-Diastolic Value=72 Un its=mmHg 01/01/2013 8480-6 [facility] Blood Pressure-Systolic Lynjp=266 Un its=mmHg 01/01/2013 8310-5 [facility] Body Temperature Value=97.1 Units= F 01/01/2013 8867-4 [facility] Heart rate Value=80.0 Units=/min 04/2013 41761-3 [facility] O2 % BldC Oximetry Value=96.0 Units= % 01/01/2013 14025-6 [facility] Weight Hxppt=782.2 Units=Lbs 03/2013
--- OUTSIDE RECORDS SUMMARY | 2025-08-22 08:39 | XMS_ITS | Encounter Summary ---
Author Organization [place] Address [address] [facility] [place] [address] Care Team Providers Care Box Liner Name Role Phone Samantha Hodge MD Primary Care Provider [phone] Katty Guadarrama Unavailable TraceesdMagi Collins DESK INTERVIEWER HEALTH AND SAFETY INSTRUCTOR Unavailable + Harry Marbart Goldstein DESK INTERVIEWER HEALTH AND SAFETY INSTRUCTOR Unavailable + Mar Mcdonald DESK INTERVIEWER HEALTH AND SAFETY INSTRUCTOR Unavailable + Magi Barboza DESK INTERVIEWER HEALTH AND SAFETY INSTRUCTOR Unavailable + Mar Mcdonald DESK INTERVIEWER HEALTH AND SAFETY INSTRUCTOR Unavailable + Mar Mcdonald DESK INTERVIEWER HEALTH AND SAFETY INSTRUCTOR Unavailable + Magi Barboza DESK INTERVIEWER HEALTH AND SAFETY INSTRUCTOR Unavailable + Harmony Marshall DESK INTERVIEWER HEALTH AND SAFETY INSTRUCTOR Unavailable + Samantha Hodge MD Unavailable + Harmony Marshall DESK INTERVIEWER HEALTH AND SAFETY INSTRUCTOR Unavailable + Magi Barboza DESK INTERVIEWER HEALTH AND SAFETY INSTRUCTOR Unavailable + Samantha Hodge MD Unavailable + Magi Barboza DESK INTERVIEWER HEALTH AND SAFETY INSTRUCTOR Unavailable + RolandoHarmony Keely DESK INTERVIEWER HEALTH AND SAFETY INSTRUCTOR Unavailable + Samantha Hodge MD Unavailable [phone] Donita Smith MD Unavailable [phone] Ian Irwin MD Unavailable [phone] Edward Manzano MD Unavailable [phone] Nancy Castro RN Unavailable Unavailable Migue Becerra MD Unavailable + [phone] Jaun Calabrese MD Unavailable [phone] Annette Whitehead APRN HEALTH AND SAFETY INSTRUCTOR Unavailable Samantha Hodge MD Primary Care Provider [phone] Samantha Hodge MD Unavailable [phone] Annette Whitehead APRN HEALTH AND SAFETY INSTRUCTOR Unavailable [phone] Samantha Hodge MD Unavailable [phone] Annette Whitehead APRN HEALTH AND SAFETY INSTRUCTOR Unavailable Reason for Visit * Reason Comments Medication Refill Verapamil Encounter Details Date Type Department Care Team (Late st Contact Info) Description 03/01/2018 Refill [facility] [address] [facility] [address] [place] [address] Samantha Hodge MD [address] [facility] [address] [place] [address] Medication Refill (Verapamil) Social History Tobacco Use Types Packs/Day Years Used Date Smoking Tobacco: Never Smokeless Tobacco: Never Alcohol Use Standard Drinks/Week Comments Yes 0 (1 standard drink = 0.6 oz pur e alcohol) 3 drinks weekly Comments No Sex and Gender Information Value Date Recorded Sex Assigned at Not on file 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 [address] [place] [address] PCP - General Internal Medicine 08/31/16 01/09/24 Magi Barboza APRN HEALTH AND SAFETY INSTRUCTOR [address] [place] [address] PCP - Assigned PCP 10/13/18 10/19/18 Mar Mcdonald APRN HEALTH AND SAFETY INSTRUCTOR [address] [place] [address] PCP - Assigned PCP 07/21/18 10/12/18 Mar Mcdonald APRN HEALTH AND SAFETY INSTRUCTOR [address] [place] [address] PCP - Assigned PCP 10/20/18 11/23/18 Magi Barboza APRN HEALTH AND SAFETY INSTRUCTOR [address] [place] [address] PCP - Assigned PCP 11/24/18 11/30/18 Mar Mcdonald APRN HEALTH AND SAFETY INSTRUCTOR [address] [place] [address] PCP - Assigned PCP 12/01/18 01/28/19 Samantha Hodge MD [address] [address] PCP - General Internal Medicine 02/08/24 04/27/25 Katty Guadarrama PATIENT RELATIONS SPECIALIST [facility] 09/11/18 01/07/19 Mar cMdonald APRN HEALTH AND SAFETY INSTRUCTOR [address] [place] [address] Assigned PCP 03/21/19 05/21/19 Magi Barboza APRN HEALTH AND SAFETY INSTRUCTOR [address] [place] [address] Assigned PCP 10/06/18 05/24/19 Harmony Marshall APRN HEALTH AND SAFETY INSTRUCTOR [address] [place] [address] Assigned PCP 07/06/19 07/12/19 Samantha Hodge MD [address] [address] Assigned PCP 07/13/19 08/09/19 Harmony Marshall APRN HEALTH AND SAFETY INSTRUCTOR [address] [place] [address] Assigned PCP 05/25/19 06/28/19 Magi Barboza APRN HEALTH AND SAFETY INSTRUCTOR [address] [place] [address] Assigned PCP 06/29/19 07/05/19 Samantha Hodge MD [address] [address] Assigned PCP 08/17/19 08/23/19 Magi Barboza APRN HEALTH AND SAFETY INSTRUCTOR [address] [place] [address] Assigned PCP 08/10/19 08/16/19 Harmony Marshall APRN HEALTH AND SAFETY INSTRUCTOR [address] [place] [address] Assigned PCP 08/24/19 09/06/19 Samantha Hodge MD [address] [facility] 200 [place] [address] Assigned PCP 09/07/19 01/17/24 Donita Smith MD [address] [place] [address] Assigned Infectious Disease Provider 09/17/20 10/16/20 Ian Irwin MD [address] [facility] [address] [place], [place] [address] Assigned Surgical Provider 09/17/20 10/09/20 Edward Manzano MD [address] [facility] [address] [place] [address] Assigned Heart and Vascular Provider 09/17/20 07/16/21 Nancy Castro, RN [facility] 04/13/2103/27 Migue Becerra MD [address] [facility] [address] [place] [address] Assigned Heart and Vascular Provider 07/17/21 10/29/21 Jaun Calabrese MD [address] [facility] [address] [place] [address] Assigned OBGYN Provider 04/09/2210/05 Annette Whitehead, DESK INTERVIEWER HEALTH AND SAFETY INSTRUCTOR [address] [place] [address] Assigned PCP 01/18/24 02/15/24 Samantha Hodge MD [address] [place] [address] Assigned PCP 02/16/24 05/17/24 Annette Whitehead APRN HEALTH AND SAFETY INSTRUCTOR [address] [place] [address] Assigned PCP 05/18/24 09/16/24 Samantha Hodge MD [address] [place] [address] Assigned PCP 09/17/24 02/14/25 Annette Whitehead APRN HEALTH AND SAFETY INSTRUCTOR [address] [place] [address] Assigned PCP 02/15/25 documented as of this encounter
--- OUTSIDE RECORDS SUMMARY | 2025-08-22 08:40 | XMS_ITS | Encounter Summary ---
Author Organization [place] Address [address] [facility] [place] [address] Care Team Providers Care Manager Distribution Name Role Phone Samantha Hodge MD Primary Care Provider [phone] Samantha Hodge MD Unavailable [phone] Donita Smith MD Unavailable [phone] Ian Irwin MD Unavailable [phone] Edward Manzano MD Unavailable [phone] Nancy Castro RN Unavailable Unavailable Migue Becerra MD Unavailable + [phone] Jaun Calabrese MD Unavailable [phone] Annette Whitehead APRN DETONATOR MAKER Unavailable [phone] Samantha Hodge MD Primary Care Provider [phone] Samantha Hodge MD Unavailable [phone] Annette Whitehead APRN DETONATOR MAKER Unavailable [phone] Samantha Hodge MD Unavailable [phone] Annette Whitehead APRN DETONATOR MAKER Unavailable [phone] Reason for Visit * Reason Comments Medication Refill amLODIPine (NORVASC) Encounter Details Date Type Department Care Team (Late st Contact Info) Description 03/06/[address] [place] [address] Samantha Hodge MD [address] [place] [address] Medication Refill (amLODIPine (NORVASC)) Social History Tobacco Use Types Packs/Day Years Used Date Smoking Tobacco: Never Smokeless Tobacco: Never Alcohol Use Standard Drinks/Week Comments Yes 0 (1 standard drink = 0.6 oz pur e alcohol) 3 drinks weekly PHQ-2 Answer Date Recorded PHQ-2 Score 0 12/04/2018 Comments No Sex and Gender Information Value Date Recorded Sex Assigned at Not on file 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 Gender Identity Not on file Sexual Orientation [...] pressure * Telephone Encounter - Beverley Adams Kristen - 03/08/2020 10:02 AM CDT Requested Prescriptions [...] CDT Return Visit with Noam Elizabeth MD [facility] [place] [facility] [address] [facility] [address] [place] [id number] Calcium Channel Blockers Protocol Failed - 03/06/2020 [...] Date Last Indicated Resolved Time Rule Out COVID-04/05/2021 04/05/2021 04/06/2021 5:26 PM CDT Rule Out COVID-04/11/2021 04/11/2021 04/12/2021 5:04 PM CDT documented as of this encounter Care Teams Manager Distribution Relationship Specialty Start Date End Date Samantha Hodge MD [address] [place] [address] PCP - General Internal Medicine 08/31/16 01/09/24 Samantha Hodge MD [address] [place] [address] PCP - General Internal Medicine 02/08/24 04/27/25 Samantha Hodge MD [address] [place] [address] Assigned PCP 09/07/19 01/17/24 Donita Smith MD [address] [place] [address] Assigned Infectious Disease Provider 09/17/20 10/16/20 Ian Irwin MD [address] [facility] [address] [place], [place] [address] Assigned Surgical Provider 09/17/20 10/09/20 Edward Manzano MD [address] [facility] [address] [place] [address] Assigned Heart and Vascular Provider 09/17/20 07/16/21 Nancy Castro, RN [facility] 04/13/2103/27 Migue Becerra MD [address] [facility] [address] [place] [address] Assigned Heart and Vascular Provider 07/17/21 10/29/21 Jaun Calabrese MD [address] [facility] [address] [place] [address] Assigned OBGYN Provider 04/09/2210/05 Annette Whitehead APRN DETONATOR MAKER [address] [place] [address] Assigned PCP 01/18/24 02/15/24 Samantha Hodge MD [address] [facility] 200 [place] [address] Assigned PCP 02/16/24 05/17/24 Annette Whitehead APRN DETONATOR MAKER [address] [place] [address] Assigned PCP 05/18/24 09/16/24 Samantha Hodge MD [address] [address] Assigned PCP 09/17/24 02/14/25 Annette Whitehead APRN DETONATOR MAKER [address] [place] [address] Assigned PCP 02/15/25 documented as of this encounter
--- OUTSIDE RECORDS SUMMARY | 2025-08-22 08:40 | XMS_ITS | Clinical Summary ---
Author Organization [facility] Address [address] [facility] [place] [address] Care Team Providers Care Sock Examiner Name Role Phone Annette Wihtehead REST ROOM ATTENDANT SANITATION TRUCK CLEANER Unavailable Allergies Active Allergy Reactions Criticality Noted Date Comments Cephalexin Hcl Rash Low 12/13/2012 No Clinical Screening - Other Allergy 09/10/1996 PN: LW CM1: CONTRAST- NKA Reaction : PN: LW Other1: -NKA Piperacillin Rash Low 03/30/2021 Piperacillin Sod-Tazobactam So Rash Low 10/15/2018 Tazobactam Rash Low 03/30/2021 Medications Magnesium 500 MG CAPS Take 750 mg by mouth every morning Active order for DMEIndications:H X: breast cancer Equipment being ordered: 3 mastectomy bras, left mastectomy 3 Device 9 Active order for DMEIndications:H X: breast cancer Equipment being ordered: left breast prosthesis 1 Device 9 Active vitamin B-12 (CYANOCOBALAMIN) 500 MCG tablet [...] Active beclomethasone HFA (QVAR REDIHALER) 80 MCG/ACT inhalerIndicatio ns:Mild intermittent asthma without complication Inhale 1 puff into the lungs 2 times daily 10.6 g 3 2 Active alendronate (FOSAMAX) 70 MG tabletIndication s:Age-related osteoporosis without current pathological fracture Take 1 tablet (70 mg) by mouth every 7 days 13 tablet 3 2 Active amLODIPine (NORVASC) 5 MG tabletIndication s:Essential hypertension Take 1 tablet by mouth daily 90 tablet 3 2 Active verapamil ER (CALAN-SR) 180 MG CR tabletIndication s:Essential hypertension TAKE TWO TABLETS BY MOUTH DAILY 180 tablet 1 2 Active Additional Information Patient taking differently: 360 mg Oral DAILY, Reported on 03/07/2023 sertraline (ZOLOFT) 50 MG tabletIndication s:Moderate episode of recurrent major depressive disorder (H) TAKE 1 TABLET BY MOUTH DAILY. DUE FOR APPOINTMENT. 90 tablet 2 Active Additional Information Patient taking differently: 75 mg Oral DAILY, Reported on 03/07/2023 lisinopril-hydro chlorothiazide (ZESTORETIC) 20-25 MG tabletIndication s:Essential hypertension TAKE ONE TABLET BY MOUTH DAILY 90 tablet 3 Active Additional Information Patient taking differently: 1 tablet Oral DAILY, Reported on 03/07/2023 ibuprofen (ADVIL/MOTRIN) 600 MG tablet Take 1 tablet (600 mg) by mouth every 6 hours as needed for pain 30 tablet 3 Active oxyCODONE (ROXICODONE) 5 MG tablet Take 1 tablet (5 mg) by mouth every 4 hours as needed for moderate pain 20 tablet 3 Active senna-docusate (SENOKOT-S/PERIC OLACE) 8.6-50 MG tablet Take 1 tablet by mouth 2 times daily 30 tablet 3 Active Active Problems Problem Noted Date Diagnosed Date S/P gynecological surgery, follow-up exam 2022 Recurrent major depressive disorder, in full rem ission 10/25/2022 Moderate episode of recurrent major depressive d isorder 01/16/2022 Acute kidney injury 04/04/2021 Elevated procalcitonin 04/04/2021 Fever 04/04/2021 Fracture [...] SCREENING; LDL GOAL LESS THAN 130 10/02/2013 Asthma, mild intermittent 03/07/2013 Arthritis of hip 12/23/2012 Essential hypertension 05/02/2003 Overview (04/04/2021): Hypertension Hypoxia 05/02/2003 Overview (04/04/2021): Asthma NOS Resolved Problems Problem Noted Date Diagnosed Date Resolved Date Ulcer of lower limb, left, w ith unspecified severity 12/14/2016 12/27/2017 Generalized anxiety disorder 04/03/2014 10/24/2018 Overview (09/27/2015): Diagnosis updated by automated process. Provider to review and confirm. Health Detention 07/10/2013 05/12/2024 Overview (07/10/2013): Candy Sams RN-BSN, [facility] [phone]. FPA / FMG [facility] Middleware Systems Architect HTN (hypertension) 12/30/2012 6 Physical deconditioning 12/30/201209/26 Anemia due to blood loss, acute 12/30/2012 03/07/2013 Immunizations Immunization Administration Dates Next Due COVID-19 MONOVALENT 12+ (Pfizer) 01/15/2021,11/28 Influenza (H1N1) 12/14/2009 Influenza (High Dose) Trival ent,PF (Fluzone) 09/03/2019,10/04/2018,09/11/2017,09/26,09/08/2015,09/11/2014 Influenza (IIV3) PF 09/11/2014,09/01/2013,2011 Influenza Vaccine 65+ (Fluzone HD) 08/17/2021, Influenza Vaccine >6 months,quad, PF 08/18/2020, 12/14/2009 Pneumo Conj 13-V (2010&after) 04/30/2018 Pneumococcal 23 valent 09/05/2012 TDAP (Adacel,Boostrix) 08/07/2011 Td (Adult), Adsorbed 01/16/2003,07/26/1998 Tdap (Adult) Unspecified Formulation 01/16/2003 Zoster recombinant adjuvante d (Shingrix) 10/22/2018,06/04/2018 08/05/2018 Zoster vaccine, live 10/22/2018,06/04/2018,08/07 Family [...] School Help Needed Not on file 09/09 Comments No Sex and Gender Information Value Date Recorded Sex Assigned at Not on file Legal Sex Female 3:24 AM WOOD SAWYER Gender Identity Not on file Sexual Orientation Not on file Last Filed Vital Signs Vital Sign Reading Time Taken Comments Blood Pressure 131/62 03/09/2023 7:25 AM CDT Pulse 67 03/09/2023 7:25 AM CDT Temperature 36.7 C (98.1 F) 03/09/2023 7:25 AM CDT Respiratory Rate 18 03/09/2023 7:25 AM CDT Oxygen Saturation 95% 03/09/2023 7:25 AM CDT Inhaled Oxygen Concentration - - Weight 62.7 kg (138 lb 3.2 oz) 03/08/2023 10:36 AM CDT Height 158.8 cm (5' 2.5) 02/26/2023 9:45 AM CDT Body Mass Index 24.87 02/26/2023 9:45 AM CDT Plan of Treatment Health Maintenance Due Date Last Done Comments DEPRESSION ACTION PLAN 1940 ASTHMA ACTION PLAN 03/07/2014 03/07/2013 RSV VACCINE (1 - 1-dose 75+ series) 2017 BMP 01/16/2023 01/16/2022, 03/26, 01/12/2021, Additional history exists ASTHMA CONTROL TEST 04/24/2023 10/25/2022, 01/16/2022, 04/20/2021, Additional history exists PHQ-9 04/24/2023 10/25/2022, 07/28, 01/16/2022, Additional history exists ANNUAL REVIEW OF HM ORDERS 10/25/2023 10/25/2022 FALL RISK ASSESSMENT 02/27/2024 02/26/2023, 01/16/2022, 10/25/2021, Additional history exists COVID-19 VACCINE ( season) 2025 09/04/2023, 09/07/2022, 04/25/2022, Additional history exists INFLUENZA VACCINE (#1) 2025 , 09/04/2023, 09/07/2022, Additional history exists MEDICARE ANNUAL WELLNESS VISIT 02/02/2026 02/02/2025, 01/31/2024, 01/26/2023, Additional history exists ADVANCE CARE PLANNING 03/08/2028 03/08/2023 , 01/16/2022, 04/04/2021, Additional history exists DTAP/TDAP/TD VACCINE (4 - Td or Tdap) 01/26/2033 01/26/2023, 08/07/2011, 01/16/2003, Additional history exists DEXA 02/03/2040 02/02/2025, 01/24, 01/03/2018, Additional history exists PNEUMOCOCCAL VACCINE 50+ YEARS Completed 04/30/2018, 09/05/2012 ZOSTER VACCINE Completed 10/22/2018, 09/27, 06/04/2018, Additional history exists MAMMO SCREENING Discontinued 03/10/2025, 01/24, 02/06/2023, Additional history exists HPV VACCINE (No Doses Required) Completed MENINGITIS VACCINE Aged Out No longer eligible based on patient's age to complete this topic Medical Devices Implanted Type Area Sr. Pricing Analyst Device Identifier Shelf Expiration Date Model / Serial / Lot Mesh Sling Single Incision Altis [id number] - [id number] Implanted:Qty: 1 on 03/08/2023 by Guille Modi MD at [facility] Mesh N/A: Vagina COLOPLAST 09/22/2025 [id number] / / [id number] [place] Nabsb Saffron Fx Strl Lf Reuse - [id number] Implanted:Qty: 1 on 03/08/2023 by Guille Modi MD at [facility] Metallic Hardware/An chor N/A: Vagina COLOPLAST [id number] 2025 [id number] / / [id number] [place] Nabsb Saffron Strl Lf Disp - [id number] Implanted:Qty: 6 on 03/08/2023 by Guille Modi MD at [facility] Metallic Hardware/An chor N/A: Vagina COLOPLAST 07/05/2025 [id number] / / [id number] Imp Device Anastomotic 2.0mm Technical Assoc Green [id number] Implanted:Qty: 1 on 09/05/2018 by Ian Irwin MD at [facility] Other Left: Knee SYN[employer]IS [employer] 06/19/2023 [id number] / / [id number]- [id number] Description:Implanted at [facility] e Flap Site Imp Device Anastomotic 3.0mm Technical Assoc Gold [id number] Implanted:Qty: 1 on 09/05/2018 by Ian Irwin MD at [facility] Other Left: Knee [employer] 04/11/2023 [id number] / / [id number]- [id number] Description:Implanted at [facility] e Flap Site 56mm E Cluster Hole Shell Implanted:Qty: 1 on 12/23/2012 by Valdo Raoms MD at [facility] Left: Hip 11/19/2017 [id number] 6E / / [id number] Imp Scr Osteonics 6.5x30mm Acetabular Implanted:Qty: 1 on 12/23/2012 by Valdo Ramos MD at [facility] Left: Hip 09/19/20172029-653 0-1 / / [id number] Imp Scr Osteonics 6.5x25mm Acetabular Implanted:Qty: 1 on 12/23/2012 by Valdo Ramos MD at [facility] Left: Hip 09/19/20172029-652 5-1 / / [id number] Imp Plug Hip Secur-Fit Apical Implanted:Qty: 1 on 12/23/2012 by Valdo Ramos MD at [facility] Left: Hip 11/19/2017 0-1 / / [id number] Imp Liner Strk Trident X3 Poly 36mm 0deg Sz E [id number] Implanted:Qty: 1 on 12/23/2012 by Valdo Ramos MD at [facility] Left: Hip 10/20/2017 623-00-3 6E / / [id number] Imp Stem Femoral Hip Strk Accolade Tmzf Sz #4.5 Implanted:Qty: 1 on 12/23/2012 by Valdo Ramos MD at [facility] Left: Hip 03/20/2017 6020-453 5 / / [id number] Imp Head Femoral Strk Biolox Delta Ceramic 36mm -5mm Implanted:Qty: 1 on 12/23/2012 by Valdo Ramos MD at [facility] Left: Hip 09/19/2017 6570-0-0 36 / / [id number] Procedures Procedure Name Priority Date/Time Associated Diagnosis Comments MA SCREENING RIGHT W/ AGUILAR Routine 03/10/2025 11:09 AM CDT Screening mammogram, encounter for COMPREHENSIVE METABOLIC PANEL Routine 01/16/2022 9:01 AM WOOD SAWYER Preventative health care Essential hypertension Hyponatremia DX PERIPHERAL WRIST Routine 01/03/2018 1 0:43 AM WOOD SAWYER Routine general medical examination at a [facility] care facility ASTHMA ACTION PLAN Routine 03/07/2013 1: 47 PM CDT Asthma, mild intermittent from Last 3 Months or Most Recently Relevant to Health Maintenance Results * MA Screen Right w/Aguilar (03/10/2025 11:09 AM CDT) Anatomical Region Laterality Modality Breast Bilateral Mammography Impressions 03/10/2025 12:49 PM CDT IMPRESSION: ACR BI-RADS Category 1: Negative BREAST CANCER SCREENING RECOMMENDATION: Routine yearly mammography beginning at age 40 or as discussed with your provider. The results and recommendations of this examination will be communicated to the patient. Estephania Funk MD Narrative 03/10/2025 12:49 PM CDT RIGHT FULL FIELD DIGITAL SCREENING MAMMOGRAM WITH TOMOSYNTHESIS Performed on: 03/10/25 Compared to: 02/08/2024 and 01/23/2022 Technique: This study was evaluated with the assistance of Computer-Aided Detection. Breast Tomosynthesis was used in interpretation. Findings: The patient is status post left mastectomy. There are scattered areas of fibroglandular density. There is no radiographic evidence of malignancy. us Cassandra Hernandez MD IMG MAMMOGRAPHY ORDERABLES F inal Result * (ABNORMAL) Comprehensive metabolic panel (BMP + Alb, Alk Phos, ALT, AST, Total. Bili, TP) (01/16/2022 9:01 AM WOOD SAWYER) Sodium 137 133 - 144 mmol/L 01/17/2022 8:57 AM [facility] Potassium 4.3 3.4 - 5.3 mmol/L 01/17/2022 8:57 AM [facility] Chloride 105 94 - 109 mmol/L 01/17/2022 8:57 AM [facility] Carbon Dioxide (CO2) 27 20 - 32 mmol/L 01/17/2022 8:57 AM [facility] Anion Gap 5 3 - 14 mmol/L 01/17/2022 8:57 AM [facility] Urea Nitrogen 25 7 - 30 mg/dL 01/17/2022 8:57 AM [facility] Creatinine 0.74 0.52 - 1.04 mg/dL 01/17/2022 8:57 AM [facility] Calcium 9.4 8.5 - 10.1 mg/dL 01/17/2022 8:57 AM [facility] Glucose 100(H) 70 - 99 mg/dL 01/17/2022 8:57 AM [facility] Alkaline Phosphatase 71 40 - 150 U/L 01/17/2022 8:57 AM [facility] AST 22 0 - 45 U/L 01/17/2022 8:57 AM [facility] ALT 30 0 - 50 U/L 01/17/2022 8:57 AM [facility] Protein Total 7.0 6.8 - 8.8 g/dL 01/17/2022 8:57 AM [facility] Albumin 3.9 3.4 - 5.0 g/dL 01/17/2022 8:57 AM [facility] Bilirubin Total 0.4 0.2 - 1.3 mg/dL 01/17/2022 8:57 AM [facility] GFR Estimate 82 >60 mL/min/1.7 3m2 01/17/2022 8:57 AM [facility] Comment:Effective October 272020 eGFRcr in adults is calculated using the 2020 CKD-EPI creatinine equation which includes age and gender (Nicolas et al., NEJM, DOI: 10.1056/TGBMxi6370311) Blood STRUCTURE OF LEFT UPPER LIMB / Unknown Venipuncture / Unknown 01/16/2022 9:01 AM WOOD SAWYER 01/16/2022 9:12 AM WOOD SAWYER us Samantha Hodge MD LAB - BLOOD ORDERABLES Katy l Result [facility] [address] Lab (no room number, 1st floor of clinic) [place] [address], [facility] [phone] * DX Wrist Heel Radius (01/03/2018 10:43 AM WOOD SAWYER) Anatomical Region Laterality Modality Dexa Bone Mineral Den sity Narrative 01/04/2018 8:56 AM WOOD SAWYER BONE DENSITOMETRY [address] [address] 01/03/2018 PATIENT: Lavonne Thapa CHART: [id number] : 1940 AGE: [age] year old SEX: female REFERRING PROVIDER: Samantha Hodge MD PROCEDURE: Bone density scanning was performed using DXA technology of the lumbar spine and hip. Scanning was performed on a Socialcast scanner. Reporting is completed in the form of a T-score. The T-score represents the standard deviation from peak bone mass based on a young healthy adult. REFERENCE T-SCORES: Normal -1.0 and greater Osteopenia Between -1.0 and -2.5 Osteoporosis -2.5 and less RISK FACTORS: Post-menopausal, Height loss of 2.5 inches, follow up severe osteoporosis, multiple vertebral fractures CURRENT TREATMENT: Calcium with Vitamin D FINDINGS: Lumbar Spine (L1-L3) T-score: 0.7, marked degenerative changes present, most marked at L4, so only L1-3 are evaluated. Right Femoral Neck T-score: -3.1 Forearm (radius 33%) T-score: -1.2 The left femur is not acceptable for evaluation due to previous arthroplasty. Lumbar (L1-L3) BMD: 1.270 Previous: 1.294 Right Total Hip BMD: 0.659 Previous: 0.687 Forearm (radius 33%) BMD: 0.617 Previous: 0.639 Comparison is made to another DXA performed on the same Socialcast machine on 11/29/2015. LATERAL VERTEBRAL ASSESSMENT Procedure: Vertebral fracture assessment was performed in the lateral decubitus position using a LunStylecrook Prodigy densitometer. Indications for VFA: T-score of -1.0 or worse, age (female>69), height loss > 1.5 and history of vertebral fracture Confounding factors for VFA: None. The LVA scan is interpretable from T6 to L4. VFA Findings: Using the semi-quantitative analysis of Genant there was evidence of spinal deformity as follows: moderate (grade 2) crush fracture of T10, and moderate (grade 2) crush fracture of T11 VFA Impression: Lavonne Thapa has 2 vertebral fractures identified on the LVA. If alternative etiologies for the presence of vertebral fractures are excluded, the diagnosis is consistent with severe osteoporosis. These are unchanged from 2016 IMPRESSION Severe osteoporosis [...] calculator (www.shef.ac.uk/FRAX or you can google FRAX). Based on these guidelines, treatment (in addition to calcium and vitamin D) is recommended for this patient, after ruling out other causes of osteoporosis. This is meant as an aid to clinical decision making; one must still use clinical judgement. Follow up can be considered in 2 years. Patricia Orellana M.D. Electronically signed Samantha Hodge MD IMKaren DEXA ORDERABLES Final R esult from Last 3 Months or Most Recently Relevant to Health Maintenance Insurance UCARE MEDICARE UCARE MEDICARE Advance Directives For more information, please contact: [phone] Documents on File Type Date Recorded Patient It Support Technician Expl anation Advance Directives and Living Will [...] Agents on File Name Relationship Healthcare Agent [employer] Courtney Thapa Daughter Health Care Agent Annette Nugent Daughter First Alternate Health Care Agent Care Teams Sock Examiner Relationship Specialty Start Date End Date Annette Whitehead APRN SANITATION TRUCK CLEANER [address] [place] [address] Assigned PCP 02/15/25
--- OUTSIDE RECORDS SUMMARY | 2025-08-22 08:40 | XMS_ITS | Encounter Summary ---
Author Organization [facility] Address [address] [facility] [place] [address] Care Team Providers Care Pattern Scratcher Name Role Phone Samantha Hodge MD Primary Care Provider [phone] Samantha Hodge MD Unavailable Migue Becerra MD Unavailable [phone] Jaun Calabrese MD Unavailable [phone] Annette Whitehead APRN SOLE ROUNDING MACHINE OPERATOR Unavailable Samantha Hodge MD Primary Care Provider Samantha Hodge MD Unavailable Annette Whitehead APRN SOLE ROUNDING MACHINE OPERATOR Unavailable Samantha Hodge MD Unavailable Annette Whitehead APRN SOLE ROUNDING MACHINE OPERATOR Unavailable Reason for Visit * Reason Comments Medication Refill Encounter Details Date Type Department Care Team (Late st Contact Info) Description 08/15/2021 Refill [facility] [address] [place] [address] Samantha Hodge MD [address] [facility] [address] [place] [address] Medication Refill Social History Tobacco Use Types Packs/Day Years Used Date Smoking Tobacco: Never Smokeless Tobacco: Never Alcohol Use Standard Drinks/Week Comments Yes 0 (1 standard drink = 0.6 oz pur e alcohol) 3 drinks weekly PHQ-2 Answer Date Recorded PHQ-2 Total Score (Adult) - Positive if 3 or more points; Administer PHQ-9 if positive 0 02/23/2021 Comments No Sex and Gender Information Value Date Recorded Sex Assigned at Not on file Legal Sex Female 3:24 AM CLIENT SERVICES ANALYST Gender Identity Not on file Sexual Orientation Not on file documented as of this encounter Miscellaneous Notes * Telephone Encounter - Arnaldo Lemos RN - 08/16/2021 2:43 PM CDT Prescription approved per [facility] Refill Protocol. documented in this encounter Plan of Treatment Not on file documented as of this encounter Visit Diagnoses Diagnosis Moderate episode of recurrent major depressive disorder (H) documented in this encounter Additional Health Concerns Assessment Noted Time PHQ-9 Depression Total Score: 0 02/25/20 21 7:04 AM CDT documented as of this encounter Care Teams Pattern Scratcher Relationship Specialty Start Date End Date Samantha Hodge MD [address] [facility] [address] [place] [address] PCP - General Internal Medicine 08/31/16 01/09/24 Samantha Hodge MD [address] [facility] [address] [place] [address] PCP - General Internal Medicine 02/08/24 04/27/25 Samantha Hodge MD [address] [facility] [address] [place] [address] Assigned PCP 09/07/19 01/17/24 Migue Becerra MD [address] [facility] [address] [place] [address] Assigned Heart and Vascular Provider 07/17/21 10/29/21 Jaun Calabrese MD [address] [facility] [address] [place] [address] Assigned OBGYN Provider 04/09/2210/05 Annette Whitehead APRN SOLE ROUNDING MACHINE OPERATOR [address] [place] [address] Assigned PCP 01/18/24 02/15/24 Samantha Hodge MD [address] [facility] [address] [place] [address] Assigned PCP 02/16/24 05/17/24 Annette Whitehead APRN SOLE ROUNDING MACHINE OPERATOR [address] [place] [address] Assigned PCP 05/18/24 09/16/24 Samantha Hodge MD [address] [facility] [address] [place] [address] Assigned PCP 09/17/24 02/14/25 Annette Whitehead APRN SOLE ROUNDING MACHINE OPERATOR [address] [place] [address] Assigned PCP 02/15/25 documented as of this encounter
--- OUTSIDE RECORDS SUMMARY | 2025-08-22 08:40 | XMS_ITS | Encounter Summary ---
Author Organization [facility] Address [address] [facility] [place] [address] Care Team Providers Care Metal Off Bearer Name Role Phone Samantha Hodge MD Primary Care Provider [phone] Samantha Hodge MD Unavailable Jaun Calabrese MD Unavailable [phone] Annette Whitehead APRN LOAN REPRESENTATIVE Unavailable Samantha Hodge MD Primary Care Provider Samantha Hodge MD Unavailable Annette Whitehead APRN LOAN REPRESENTATIVE Unavailable Samantha Hodge MD Unavailable Annette Whitehead APRN LOAN REPRESENTATIVE Unavailable Reason for Visit * Reason Comments Medication Refill Encounter Details Date Type Department Care Team (Late st Contact Info) Description 03/25/2022 Refill [facility] [address] [place] [address] Samantha Hodge MD [address] [place] [address] Medication Refill Social History Tobacco Use Types Packs/Day Years Used Date Smoking Tobacco: Never Smokeless Tobacco: Never Alcohol Use Standard Drinks/Week Comments Yes 0 (1 standard drink = 0.6 oz pur e alcohol) 3 drinks weekly PHQ-2 Answer Date Recorded PHQ-2 Score 2 01/16/2022 Comments No Sex and Gender Information Value Date Recorded Sex Assigned at Not on file Legal Sex Female 3:24 AM INSIDE SALES ACCOUNT EXECUTIVE Gender Identity Not on file Sexual Orientation Not on file documented as of this encounter Miscellaneous Notes * Telephone Encounter - Talita Zamorano RN - 03/28/2022 12:47 PM CDT Routing refill request to provider for review/approval because: Drug not active on patient's medication list Prescription approved per [facility] Refill Protocol. [email or web address] Due for appointment with Naveen around 07/16/22 Routed to covering provider for review. documented in this encounter Plan of Treatment Not on file documented as of this encounter Visit Diagnoses Diagnosis Essential hypertension Unspecified essential hypertension documented in this encounter Additional Health Concerns Assessment Noted Time PHQ-9 Depression Total Score: 3 01/16/20 22 9:19 AM INSIDE SALES ACCOUNT EXECUTIVE documented as of this encounter Care Teams Metal Off Bearer Relationship Specialty Start Date End Date Samantha Hodge MD [address] [facility] [address] [place] [address] PCP - General Internal Medicine 08/31/16 01/09/24 Samantha Hodge MD [address] [facility] [address] [place] [address] PCP - General Internal Medicine 02/08/24 04/27/25 Samantha Hodge MD [address] [facility] [address] [place] [address] Assigned PCP 09/07/19 01/17/24 Jaun Calabrese MD [address] [facility] [address] [place], [place] [address] Assigned OBGYN Provider 04/09/2210/05 Annette Whitehead APRN LOAN REPRESENTATIVE [address] [place], [place] [address] Assigned PCP 01/18/24 02/15/24 Samantha Hodge MD [address] [id number] Assigned PCP 02/16/24 05/17/24 Annette Whitehead APRN LOAN REPRESENTATIVE [address] [place] [address] Assigned PCP 05/18/24 09/16/24 Samantha Hodge MD [address] [address] Assigned PCP 09/17/24 02/14/25 Annette Whitehead APRN LOAN REPRESENTATIVE [address] [place] [address] Assigned PCP 02/15/25 documented as of this encounter
[2025-08-22 08:46] VITALS: BP 140/66; PULSE 66; RESP 18; TEMP 36.8; O2SAT 96; BMI 23.9
--- NOTE | 2025-08-22 09:06 | ED.GENADULT ---
HPI - General Adult General Chief complaint: Unspecified Complaint, Adult Stated complaint: rectal bleeding Time Seen by Provider: 08/22/25 09:00 History of Present Illness HPI narrative: Patient is an 85-year-old woman with a history of rectal prolapse. It has been quite sometime since she has had a rectal prolapse recurrence but she had 1 yesterday. She interestingly was able to get the rectum reduced using a cutting board. She has had a little bit of blood in her rectum but is having no pain at this time. His no abdominal pain she has no blood in her stool. She has been taking senna to try to help keep her stools soft. She knows that when her stools are softer her rectal prolapse is not an issue. Patient otherwise just once assessment of her rectum and follow-up recommendations. She is otherwise feeling fine. Related Data Home Medications ?Medication ?Instructions ?Recorded ?Confirmed albuterol sulfate 90 mcg/actuation 2 puff inhalation Q4-6H PRN 03/05/24 08/17/25 aerosol inhaler (ProAir HFA) alendronate 70 mg tablet 70 mg PO .Every 7 Days 03/05/24 08/17/25 amlodipine 5 mg tablet mg PO DAILY 03/05/24 08/17/25 ascorbic acid (vitamin C) 1,000 mg 1 g PO DAILY 03/05/24 08/17/25 tablet beclomethasone dipropionate 80 1 inh inhalation BID 03/05/24 08/17/25 mcg/actuation HFA breath activated aerosol beta carotene 7,500 mcg (25,000 7,500 mcg PO ONCE 03/05/24 08/17/25 unit) capsule calcium carbonate 600 mg PO DAILY 03/05/24 08/17/25 cholecalciferol (vitamin D3) 50 50 mcg PO QDAY 03/05/24 08/17/25 mcg (2,000 unit) capsule cyanocobalamin (vitamin B-12) 500 500 mcg PO DAILY 03/05/24 08/17/25 mcg tablet glucosamine sulfate 1,000 mg 2,000 mg PO DAILY 03/05/24 08/17/25 capsule lisinopril 20 mg tablet mg PO DAILY 03/05/24 08/17/25 lutein 20 mg tablet 20 mg PO QDAY 03/05/24 08/17/25 lysine 1,000 mg tablet 1,000 mg PO QDAY 03/05/24 08/17/25 magnesium 250 mg tablet 250 mg PO TID 03/05/24 08/17/25 omega 7-ekk-cld-fish oil 100 cap PO 03/05/24 08/17/25 mg-160 mg-1,000 mg capsule (Fish Oil) potassium gluconate 595 mg (99 mg) 595 mg PO QDAY 03/05/24 08/17/25 tablet pyridoxine (vitamin B6) 100 mg 100 mg PO QDAY 03/05/24 08/17/25 tablet selenium 200 mcg tablet 200 mcg PO QDAY 03/05/24 08/17/25 sertraline 50 mg tablet 50 mg PO DAILY 03/05/24 08/17/25 verapamil 180 mg 24 hr 360 mg PO DAILY 03/05/24 08/17/25 capsule,extended release vitamin E (dl, acetate) 180 mg 180 mg PO QDAY 03/05/24 08/17/25 (400 unit) capsule zinc gluconate 50 mg tablet 50 mg PO QDAY 03/05/24 08/17/25 Allergies Allergy/AdvReac Type Severity Reaction Status Date / Time cephalexin Allergy Intermediate Rash Verified 08/17/25 19:34 piperacillin (From Zosyn) Allergy Unknown Rash Verified 08/17/25 19:34 tazobactam (From Zosyn) Allergy Unknown Rash Verified 08/17/25 19:34 Review of Systems Status of ROS: Reports: 10 or more systems reviewed and unremarkable except as noted in History and below [facility] Medical History Elevated procalcitonin ?R79.89 - Other specified abnormal findings of blood chemistry (ICD-10) Hypertension ?I10 - Essential (primary) hypertension (ICD-10) Lesion of soft tissue of lower leg and ankle ?M79.9 - Soft tissue disorder, unspecified (ICD-10) Fracture of right hip ?S72.001A - Fracture of unspecified part of neck of right femur, initial encounter for closed fracture (ICD-10) Breast cancer ?C50.919 - Malignant neoplasm of unspecified site of unspecified female breast (ICD-10) Arthritis ?M19.90 - Unspecified osteoarthritis, unspecified site (ICD-10) Hypertension ?I10 - Essential (primary) hypertension (ICD-10) Asthma ?J45.909 - Unspecified asthma, uncomplicated (ICD-10) Herpes zoster ?B02.9 - Zoster without complications (ICD-10) Surgical History History of carpal tunnel surgery of left wrist ?Z98.890 - Other specified postprocedural states (ICD-10) H/O left mastectomy ?Z90.12 - Acquired absence of left breast and nipple (ICD-10) 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) ?Z96.652 - Presence of left artificial knee joint (ICD-10) History of hysterectomy ?Z90.710 - Acquired absence of both cervix and uterus (ICD-10) History of total left hip replacement (~2012) ?Z96.642 - Presence of left artificial hip joint (ICD-10) History of total right hip replacement (03/31/21) ?Z96.641 - Presence of right artificial hip joint (ICD-10) Family History Mother Uterine cancer Father Heart disease Social History Smoking Status: Never smoker How often do you have a drink containing alcohol: never AUDIT-C Alcohol total score: 0 Non-prescribed substance use: denies use Exam Narrative: Exam Narrative: EXAM GENERAL: Patient appears comfortable and well. EYES: No scleral icterus. LYMPH: No supraclavicular or cervical lymphadenopathy. SKIN: Visible skin seen during exam normal or with benign process only. EXT: No dependent lower extremity pedal edema. HEART: Regular rate and rhythm with no murmurs, rubs, or gallops. LUNGS: Clear to auscultation bilaterally with no crackles or wheezes. ABD: Soft, non tender, non distended. PSYCH: Good eye contact, speech is not pressured. Perirectal exam shows minor irritation but no pain with palpation of the rectum. The anus appears patent and no significant blood is present. Const: Vital Signs, click to edit/add: Vital Signs - 24 hr 08/22/25 08:46 Temperature 98.3 F Pulse Rate [Pulse Oximeter] 66 Respiratory Rate 18 Blood Pressure [Le ft Upper Arm] 140/66 H Pulse Oximetry 96 Oxygen Delivery Me thod Room Air Course Course ED Course: Patient seen and examined. Vital Signs Vital signs: Initial Vital Signs Temperature 98.3 F 08/22/25 08:46 Temperature Source Temporal Artery Scan 08/22/25 08:46 Pulse Rate 66 08/22/25 08:46 Respiratory Rate 18 08/22/25 08:46 Blood Pressure 140/66 H 08/22/25 08:46 Blood Pressure Mean 90 08/22/25 08:46 Blood Pressure Position Sitting 08/22/25 08:46 Pulse Oximetry 96 08/22/25 08:46 Oxygen Delivery Method Room Air 08/22/25 08:46 Vital Signs Temperature 98.3 F 08/22/25 08:46 Pulse Rate 66 08/22/25 08:46 Respiratory Rate 18 08/22/25 08:46 Blood Pressure 140/66 H 08/22/25 08:46 Pulse Oximetry 96 08/22/25 08:46 Oxygen Delivery Method Room Air 08/22/25 08:46 Temperature 98.3 F 08/22/25 08:46 Pulse Rate 66 08/22/25 08:46 Respiratory Rate 18 08/22/25 08:46 Blood Pressure 140/66 H 08/22/25 08:46 Pulse Oximetry 96 08/22/25 08:46 Oxygen Delivery Method Room Air 08/22/25 08:46 Medical Decision Making MDM Narrative Medical decision making narrative: Patient presents 1 day following self reduction of a rectal prolapse. She was able to get the rectum back in using a cutting board technique which I am not familiar with. In any case, she has no significant pathology today other than some minor irritation. Did recommend continued hydration lotion on her bottom as well as the initiation of MiraLax several times a week or even daily. She will follow-up with her primary physician as needed and will come back to the ER if her rectum prolapses again. Discharge Plan Discharge Clinical Impression: Rectal prolapse Patient Disposition: Home, Self-Care Condition: Stable Instructions: Rectal Prolapse (ED) Additional Instructions: MiraLax [id number]-hqp-[id number] every other day Keep stool soft Hydrating lotion to your bottom Follow-up with your doctor next week. Activity Level: No Restrictions Discharge Diet: Regular Prescriptions: No Action zinc gluconate 50 mg tablet 50 mg PO QDAY potassium gluconate 595 mg (99 mg) tablet 595 mg PO QDAY lutein 20 mg tablet 20 mg PO QDAY Rx Instructions: give with meal/snack pyridoxine (vitamin B6) 100 mg tablet 100 mg PO QDAY Fish Oil 100-160-1,000 mg capsule PO beta carotene 7,500 mcg (25,000 unit) capsule 7,500 mcg PO ONCE Rx Instructions: administer with a meal selenium 200 mcg tablet 200 mcg PO QDAY lysine 1,000 mg tablet 1,000 mg PO QDAY vitamin E (dl, acetate) 180 mg (400 unit) capsule 180 mg PO QDAY cholecalciferol (vitamin D3) 50 mcg (2,000 unit) capsule 50 mcg PO QDAY albuterol sulfate [ProAir HFA] 90 mcg/actuation HFA aerosol inhaler 2 puff inhalation Q4-6H PRN glucosamine sulfate 1,000 mg capsule 2,000 mg PO DAILY sertraline 50 mg tablet 50 mg PO DAILY cyanocobalamin (vitamin B-12) 500 mcg tablet 500 mcg PO DAILY calcium carbonate 600 mg calcium (1,500 mg) tablet 600 mg PO DAILY verapamil 180 mg capsule,ext rel. pellets 24 hr 360 mg PO DAILY amlodipine 5 mg tablet PO DAILY alendronate 70 mg tablet 70 mg PO .Every 7 Days ascorbic acid (vitamin C) 1,000 mg tablet 1 g PO DAILY magnesium 250 mg tablet 250 mg PO TID beclomethasone dipropionate 80 mcg/actuation HFA aerosol breath activated 1 inh inhalation BID lisinopril 20 mg tablet PO DAILY Follow Up/Referrals: Provider,Not a Local [Primary Care Provider, Family Practice] Stand Alone Forms: [employer] Info Instructions
--- OUTSIDE RECORDS SUMMARY | 2025-08-22 09:13 | XMS_ITS ---
Author Organization [facility] Care Team Providers Care Radiation Engineer Name Role Phone Velia Jackman Unavailable Unavailable Magi Barboza Unavailable Unavailable Allergies and adverse reactions Code CodeSystem Substance Reaction Severity StartDate Concern Status 2231 RXNORM Cephalexin Unknown 09/10/2018 active Care Team Name Role Address Phone Organization Dates Velia Jackman PCP [address], [address], [place] (Office): : [facility] 04/03/2021 - 04/15/2021 Magi Barboza [address] [facility] [address], [place], [address], [place] (Office): : [facility] 04/03/2021 - 04/15/2021 Immunizations Immunization Status Vaccine Details Vaccine Code CodeSystem Date Notes Influenza completed Influenza, split virus, quadrivalent, injectable, contains preservative 158 CVX created date: 09/11/2018 administer ed date: 09/12/2018 TB 2 Step Mantoux Skin Test completed tuberculin skin test; unspecified formulation lotNumber: [id number] expiry: 11/13/2018 Mfg: Aplisol Given 0.1 ml Right Forearm intradermally Step 2 of Multi-step with next step required 98 CVX created date: 09/21/2018 consent date: 09/20/2018 administer ed date: 09/21/2018 Educated by Mer[facility] on 09/20/2018 TB 2 Step Mantoux Skin Test completed tuberculin skin test; unspecified formulation lotNumber: [id number] expiry: 10/26/2019 Mfg: Aplisol Given 0.1 ml [...] Status 1 ACUTE KIDNEY FAILURE, UNSPECIFIED 04/03/[address] active 2 ACUTE POSTHEMORRHAGIC ANEMIA 04/03/[address] active 3 AGE-RELATED OSTEOPOROSIS WITHOUT CURRENT PATHOLOGICAL FRACTURE 04/03/[address] active 4 FRACTURE OF UNSPECIFIED PART OF NECK OF RIGHT FEMUR, SUBSEQUENT ENCOUNTER FOR CLOSED FRACTURE WITH ROUTINE HEALING 04/03/[address] active 5 MAJOR DEPRESSIVE DISORDER, SINGLE EPISODE, UNSPECIFIED 04/03/[address] active 6 MUSCLE WEAKNESS (GENERALIZED) 04/03/[address] active 7 OTHER ABNORMALITIES OF GAIT AND MOBILITY 04/03/[address] active 8 OTHER SPECIFIED SOFT TISSUE DISORDERS 04/03/[address] active 9 PRESENCE OF RIGHT ARTIFICIAL HIP JOINT 04/03/[address] active 10 UNILATERAL PRIMARY OSTEOARTHRITIS, UNSPECIFIED HIP 04/03/[address] active 11 DISRUPTION OF EXTERNAL OPERATION (SURGICAL) WOUND, NOT ELSEWHERE CLASSIFIED, SUBSEQUENT ENCOUNTER 09/10/20 18 03/26/[address] completed 12 ENCOUNTER FOR OTHER SPECIFIED SURGICAL AFTERCARE 09/10/20 18 03/26/[address] completed 13 ESSENTIAL (PRIMARY) HYPERTENSION 09/10/[address] active 14 GENERALIZED ANXIETY DISORDER 09/10/20 18 03/26/[address] completed 15 MILD INTERMITTENT ASTHMA, UNCOMPLICATED 09/10/[address] active 16 MUSCLE WEAKNESS (GENERALIZED) 09/10/20 18 03/26/[address] completed 17 OTHER ABNORMALITIES OF GAIT AND MOBILITY 09/10/20 18 03/26/[address] completed 18 OTHER CHRONIC PAIN 09/10/20 18 03/26/[address] completed 19 OTHER MALAISE 09/10/20 18 03/26/[address] completed 20 PERSONAL HISTORY OF MALIGNANT NEOPLASM OF BREAST 09/10/[address] active 21 PRESENCE OF LEFT ARTIFICIAL KNEE JOINT 09/10/20 18 03/26/[address] completed Reason for Referral No Reasons for Referral Entered Social History Social History Observation Description Start Date End Date Code Code System Current Smoking Status Tobacco smoking consumption unknown 662953410 SNOMED CT Sex Assigned At Female 1940 84139-6 [facility] Gender Identity Sexual Orientation Vital Signs Code Code System Vitals Name Values and Units Timing Information 9279-1 [facility] Respiratory Rate Value=18.0 Units=/m in 04/14/2021 8462-4 INC Blood Pressure-Diastolic Value=64 Un its=mmHg 04/14/2021 8480-6 [facility] Blood Pressure-Systolic Notrd=847 Un its=mmHg 04/14/2021 8310-5 [facility] Body Temperature Value=98.1 Units= F 04/14/2021 71992-8 INC O2 % BldC Oximetry Value=96.0 Units= % 04/14/2021 24545-8 INC Pain Level Value=0.0 04/14/2021 8867-4 INC Heart rate Value=75.0 Units=/min 11043-4 LO[facility] Weight Ouqof=518.8 Units=Lbs 8302-2 LO[facility] Height Value=64.0 Units=Inches 09/10/2018
--- OUTSIDE RECORDS SUMMARY | 2025-08-22 09:13 | XMS_ITS | CCD ---
Author Name Interface, [id number] lity Address [address] [place] [address] [address] [facility] Address [facility] [place] [address] Reason for Visit Social History
--- OUTSIDE RECORDS SUMMARY | 2025-08-22 09:13 | XMS_ITS ---
Author Organization [facility] Care Team Providers Care Industrial X Ray Operator Name Role Phone Iveth Krueger Unavailable Unavailable Emiliana Zapata (Liz) Unavailable Unavail able Allergies and adverse reactions Code CodeSystem Substance Reaction Severity StartDate Concern Status Cephalexin Hcl (rash) Unknown Unknown ac tive Care Team Name Role Address Phone Organization Dates Iveth Krueger PCP [facility] [address], [place], [facility], [facility] (Office): : [facility] 12/26/2012 - 01/01/2013 Emiliana Zapata (Liz) [facility] [address] [place] [address] [address], [place], [facility], [place] (Office): (Pager): [facility] 12/26/2012 - 01/01/2013 Immunizations Immunization Status [...] Current Smoking Status Tobacco smoking consumption unknown [id number] SNOMED CT Sex Assigned At Female 1940 07325-9 [facility] Gender Identity Sexual Orientation Vital Signs Code Code System Vitals Name Values and Units Timing Information 9279-1 [facility] Respiratory Rate Value=16.0 Units=/m in 01/01/2013 8462-4 [facility] Blood Pressure-Diastolic Value=72 Un its=mmHg 01/01/2013 8480-6 [facility] Blood Pressure-Systolic Lwdut=288 Un its=mmHg 01/01/2013 8310-5 [facility] Body Temperature Value=97.1 Units= F 01/01/2013 8867-4 [facility] Heart rate Value=80.0 Units=/min 04/2013 64826-4 [facility] O2 % BldC Oximetry Value=96.0 Units= % 01/01/2013 00155-0 [facility] Weight Fdity=989.2 Units=Lbs 03/2013
--- OUTSIDE RECORDS SUMMARY | 2025-08-22 09:14 | XMS_ITS | CCD ---
Author Name Interface, [id number] lity Address [address] [place] [id number] [facility] Address [facility] [address] [address] Reason for Visit Social History Date Name Value 07/25/2025 Sex Female
== END 2025-08-22 09:20 | disposition home or self-care (01) ==
LOC: ED 09:12
PROVIDERS: Emergency Provider Internal Medicine
DX: K62.2 Anal prolapse (principal)
CPT/HCPCS: 99283